=== PATIENT | female | born 1975 | race Caucasian/White ===

== ENCOUNTER 2017-05-31 18:00 | Inpatient (IN) | payer MEDICAID, OTHER ==
--- NOTE | 2017-05-31 18:47 | EDM.PDOC ---
ED HPI GENERAL MEDICAL PROBLEM - General Chief Complaint: Abdominal Pain Stated Complaint: SEVERE ABD PAIN Time Seen by Provider: 05/31/17 19:18 Source of Information: Reports: Patient, Old Records, RN Notes Reviewed History Limitations: Reports: No Limitations - History of Present Illness INITIAL COMMENTS - FREE TEXT/NARRATIVE: 42-year-old female presents emergency department day complaint of abdominal pain , she has a known history of gastric bypass approximates 5 years ago she states she's been doing fairly well for the last 4 years however the last 2-3 weeks she 's had increasing abdominal pain predominately in the epigastric region it progressively has gotten worse over the last 24 hours will get nauseated with the pain but is still passing gas no particular relationship to food she has had hysterectomy as well as cholecystectomy ABDOMINAL Pain Score (Numeric/FACES): 10 - Related Data Allergies Allergy/AdvReac Type Severity Reaction Status Date / Time Sulfa (Sulfonamide Allergy Intermediate Hives Verified 05/31/17 18:17 Antibiotics) Home Meds: Home Meds Ca Cmb No.1/Vit D3/B-6/FA/B12 [Vitamin D3 1,000 Unit] 1 each PO BID 01/05/13 [ History] Calcium Citrate 1 tab PO BID 01/05/13 [History] Iron,Carbonyl/Ascorbic Acid [Vitron-C Tablet] 125 mg PO DAILY 01/05/13 [History] Magnesium 400 mg PO TID 01/05/13 [History] Multivitamin [Multivitamins] 1 each PO BID 01/05/13 [History] Potassium Chloride [Klor-Con M20] 1 tab PO DAILY 01/05/13 [History] Vit B12/Fa/Pyridoxine HCl/AA15 [Glycotrol] 1,000 mcg SL BID 01/05/13 [History] Vitamin B Complex [B-100 Complex] 1 tab PO DAILY 06/27/15 [History] Melatonin 12 mg PO BEDTIME 06/28/15 [History] Amitriptyline [Elavil] 20 mg PO DAILY 05/31/17 [History] Gabapentin [Neurontin] 100 mg PO QID 05/31/17 [History] Zolpidem Tartrate [Ambien] 5 mg PO BEDTIME 05/31/17 [History] hydrOXYzine HCl [hydrOXYzine] 25 mg PO DAILY 05/31/17 [History] Past Medical History Gastrointestinal History: Reports: Bowel Obstruction, Cholelithiasis, Hiatal Hernia, Other (See Below) Other Gastrointestinal History: ulcer Genitourinary History: Reports: UTI, Recurrent [employer] History: Reports: 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 Uterine Bleeding, Endometriosis, Musculoskeletal History: Reports: None Psychiatric History: Reports: Depression Endocrine/Metabolic History: Reports: Hypothyroidism Hematologic History: Reports: B12 Deficiency - Infectious Disease History Infectious Disease History: Reports: Chicken Pox - Past Surgical History GI Surgical History: Reports: Bariatric Procedure, Cholecystectomy, Colon, Esophageal Dilatation, Elisha Fundoplication Female Surgical History: Reports: Section, D&C, Hysterectomy Endocrine Surgical History: Reports: None Social & Family History - Tobacco Use Smoking Status *Q: Never Smoker Second Hand Smoke Exposure: Yes - Alcohol Use Days Per Week of Alcohol Use: 1 Number of Drinks Per Day: 1 Total Drinks Per Week: 1 - Recreational Drug Use Recreational Drug Use: No ED ROS GENERAL - Review of Systems Review Of Systems: See Below Constitutional: Denies: Fever, Chills HEENT: Reports: No Symptoms Respiratory: Reports: No Symptoms Cardiovascular: Reports: No Symptoms GI/Abdominal: Reports: Abdominal Pain, Flatus, Nausea. Denies: Constipation, Diarrhea, Vomiting : Reports: No Symptoms Musculoskeletal: Reports: No Symptoms Skin: Reports: No Symptoms Neurological: Reports: No Symptoms ED EXAM, GI/ABD - Physical Exam Exam: See Below Text/Narrative:: General: Female, mild discomfort secondary to abdominal pain, alert and oriented x3 HEENT: head is atraumatic normocephalic, eyes pupils equal round reactive to light, sclera clear no conjunctivitis appreciated. Ears tympanic membranes clear and lopez landmarks and light reflex are present bilaterally canals are clear. Nose no septal deviation, nares are clear, no blood present. Mouth mucosa is moist and pink no erythema or exudate noted in soft palate, tongue is midline uvula is midline, dentition is intact. Neck: Supple no thyromegaly no tracheal deviation. Nodes: Cervical nodes subclavicular nodes nontender no palpable lymphadenopathy noted. Lungs: clear to auscultation bilaterally with symmetrical respirations, no adventitious noise appreciated. CV: Regular rate and rhythm S1 and S2 appreciated no murmurs rubs or gallops noted. Abdomen: Soft, tender epigastric region, no palpable masses or organomegaly appreciated, no distention mild guarding bowel sounds are present, . Neuro: Cranial nerves II through XII grossly intact Skin: Warm and dry, intact Course - Vital Signs Last Recorded V/S: Last Vital Signs Temp 98.1 F 05/31/17 18:16 Pulse 60 05/31/17 19:50 Resp 18 05/31/17 19:50 BP 125/79 05/31/17 19:50 Pulse Ox 100 05/31/17 19:50 - Orders/Labs/Meds Orders: Active Orders 24 hr Category Date Time Status Peripheral IV Care [RC] . DIRECTED Care 05/31/17 19:16 Active Abdomen Pelvis w Cont [CT] Urgent Exams 05/31/17 19:15 Ordered Iopamidol [Isovue-300 (61%)] Med 05/31/17 19:45 Active 100 ml IV . DIRECTED Sodium Chloride 0.9% [Normal Saline] 1,000 ml Med 05/31/17 19:15 Active IV ASDIRECTED Sodium Chloride 0.9% [Saline Flush] Med 05/31/17 19:15 Active 10 ml FLUSH ASDIRECTED PRN Peripheral IV Insertion Adult [OM.PC] Urgent Oth 05/31/17 19:15 Ordered Medication Orders Sodium Chloride (Normal Saline) 1,000 mls @ 500 mls/hr IV ASDIRECTED ETTA Last Admin: 05/31/17 20:18 Dose: 500 mls/hr Iopamidol (Isovue-300 (61%)) 100 ml IV . DIRECTED ETTA Last Admin: 05/31/17 20:11 Dose: 100 ml Sodium Chloride (Saline Flush) 10 ml FLUSH ASDIRECTED PRN PRN Reason: Keep Vein Open Last Admin: 05/31/17 20:12 Dose: 10 ml Admin: 05/31/17 19:49 Dose: 10 ml Admin: 05/31/17 19:46 Dose: 10 ml Admin: 05/31/17 19:33 Dose: 10 ml Labs: Laboratory Tests 05/31/17 05/31/17 05/31/17 Range/Units 19:15 19:33 19:33 WBC 7.2 (4.5-11.0) K/uL RBC 4.27 (3.30-5.50) M/uL Hgb 12.2 (12.0-15.0) g/dL Hct 37.7 (36.0-48.0) % MCV 88 (80-98) fL MCH 29 (27-31) pg MCHC 32 (32-36) % Plt Count 346 (150-400) K/uL Neut % (Auto) 49 (36-66) % Lymph % (Auto) 38 (24-44) % Bates % (Auto) 8 H (2-6) % Eos % (Auto) 5 H (2-4) % Baso % (Auto) 1 (0-1) % Sodium 139 L (140-148) mmol/L Potassium 3.6 (3.6-5.2) mmol/L Chloride 105 (100-108) mmol/L Carbon Dioxide 24 (21-32) mmol/L Anion Gap 13.6 (5.0-14.0) mmol/L BUN 10 (7-18) mg/dL Creatinine 0.9 (0.6-1.0) mg/dL Est Cr Clr Drug Dosing 75.45 mL/min Estimated GFR (MDRD) > 60 (>60) Glucose 90 (74-106) mg/dL Lactic Acid (0.4-2.0) mmol/L Calcium 8.3 L (8.5-10.1) mg/dL Total Bilirubin 0.4 (0.2-1.0) mg/dL AST 21 (15-37) U/L ALT 21 (12-78) U/L Alkaline Phosphatase 94 (46-116) U/L Total Protein 7.1 (6.4-8.2) g/dL Albumin 3.8 (3.4-5.0) g/dL Globulin 3.3 (2.3-3.5) g/dL Albumin/Globulin Ratio 1.2 (1.2-2.2) Lipase 104 (73-393) U/L Urine Color Yellow Urine Appearance Clear Urine pH 7.0 (4.5-8.0) Ur Specific [place] 1.005 L (1.008-1.030) Urine Protein Negative (NEGATIVE) mg/dL Urine Glucose (UA) Normal (NEGATIVE) mg/dL Urine Ketones Negative (NEGATIVE) mg/dL Urine Occult Blood Negative (NEGATIVE) Urine Nitrite Negative (NEGATIVE) Urine Bilirubin Negative (NEGATIVE) Urine Urobilinogen Normal (NORMAL) mg/dL Ur Leukocyte Esterase Negative (NEGATIVE) Urine RBC 0-5 (0-5) Urine WBC 0-5 (0-5) Ur Epithelial Cells Moderate Amorphous Sediment Few Urine Bacteria Few Urine Mucus Few 05/31/17 Range/Units 19:33 WBC (4.5-11.0) K/uL RBC (3.30-5.50) M/uL Hgb (12.0-15.0) g/dL Hct (36.0-48.0) % MCV (80-98) fL MCH (27-31) pg MCHC (32-36) % Plt Count (150-400) K/uL Neut % (Auto) (36-66) % Lymph % (Auto) (24-44) % Bates % (Auto) (2-6) % Eos % (Auto) (2-4) % Baso % (Auto) (0-1) % Sodium (140-148) mmol/L Potassium (3.6-5.2) mmol/L Chloride (100-108) mmol/L Carbon Dioxide (21-32) mmol/L Anion Gap (5.0-14.0) mmol/L BUN (7-18) mg/dL Creatinine (0.6-1.0) mg/dL Est Cr Clr Drug Dosing mL/min Estimated GFR (MDRD) (>60) Glucose (74-106) mg/dL Lactic Acid 1.0 (0.4-2.0) mmol/L Calcium (8.5-10.1) mg/dL Total Bilirubin (0.2-1.0) mg/dL AST (15-37) U/L ALT (12-78) U/L Alkaline Phosphatase (46-116) U/L Total Protein (6.4-8.2) g/dL Albumin (3.4-5.0) g/dL Globulin (2.3-3.5) g/dL Albumin/Globulin Ratio (1.2-2.2) Lipase (73-393) U/L Urine Color Urine Appearance Urine pH (4.5-8.0) Ur Specific [place] (1.008-1.030) Urine Protein (NEGATIVE) mg/dL Urine Glucose (UA) (NEGATIVE) mg/dL Urine Ketones (NEGATIVE) mg/dL Urine Occult Blood (NEGATIVE) Urine Nitrite (NEGATIVE) Urine Bilirubin (NEGATIVE) Urine Urobilinogen (NORMAL) mg/dL Ur Leukocyte Esterase (NEGATIVE) Urine RBC (0-5) Urine WBC (0-5) Ur Epithelial Cells Amorphous Sediment Urine Bacteria Urine Mucus Meds: Medications Generic Name Dose Route Start Last Admin Trade Name Freq PRN Reason Stop Dose Admin Sodium Chloride 1,000 mls @ 500 mls/hr 05/31/17 19:15 05/31/17 20:18 Normal Saline IV 500 mls/hr ASDIRECTED ETTA Administration Iopamidol 100 ml 05/31/17 19:45 05/31/17 20:11 Isovue-300 (61%) IV 100 ml . DIRECTED ETTA Administration Sodium Chloride 10 ml 05/31/17 19:15 05/31/17 20:12 Saline Flush FLUSH 10 ml ASDIRECTED PRN Administration Keep Vein Open Discontinued Medications Generic Name Dose Route Start Last Admin Trade Name Freq PRN Reason Stop Dose Admin Fentanyl 50 mcg 05/31/17 19:17 05/31/17 19:47 Sublimaze IVPUSH 05/31/17 19:18 50 mcg ONETIME ONE Administration Fentanyl 100 mcg 05/31/17 20:55 05/31/17 20:59 Sublimaze IVPUSH 05/31/17 20:56 100 mcg ONETIME ONE Administration Sodium Chloride 75 mls @ 3.5 mls/sec 05/31/17 19:33 05/31/17 20:11 Normal Saline IV 05/31/17 19:34 3.5 mls/sec ONETIME ONE Administration Ondansetron HCl 4 mg 05/31/17 19:17 05/31/17 19:45 Zofran IVPUSH 05/31/17 19:18 4 mg ONETIME ONE Administration Sodium Chloride 10 ml 05/31/17 19:33 Saline Flush FLUSH 05/31/17 19:34 ONETIME ONE Departure - Departure Time of Disposition: 21:01 Disposition: Admitted As Inpatient 65 Condition: Good Clinical Impression: Gastric bypass status for obesity Abdominal pain Qualifiers: Abdominal location: epigastric Qualified Code(s): R10.13 - Epigastric pain - Discharge Information Referrals: Phong Parr MD [Primary Care Provider] - Forms: ED Department Discharge - My Orders Last 24 Hours: My Active Orders 05/31/17 19:15 Abdomen Pelvis w Cont [CT] Urgent Sodium Chloride 0.9% [Normal Saline] 1,000 ml IV ASDIRECTED Sodium Chloride 0.9% [Saline Flush] 10 ml FLUSH ASDIRECTED PRN Peripheral IV Insertion Adult [OM.PC] Urgent 05/31/17 19:16 Peripheral IV Care [RC] . DIRECTED 05/31/17 19:45 Iopamidol [Isovue-300 (61%)] 100 ml IV . DIRECTED - Assessment/Plan Last 24 Hours: My Active Orders 05/31/17 19:15 Abdomen Pelvis w Cont [CT] Urgent Sodium Chloride 0.9% [Normal Saline] 1,000 ml IV ASDIRECTED Sodium Chloride 0.9% [Saline Flush] 10 ml FLUSH ASDIRECTED PRN Peripheral IV Insertion Adult [OM.PC] Urgent 05/31/17 19:16 Peripheral IV Care [RC] . DIRECTED 05/31/17 19:45 Iopamidol [Isovue-300 (61%)] 100 ml IV . DIRECTED Plan: Assessment Acuity = acute Site and laterality = epigastric abdominal pain complicated patient with known history of gastric bypass 5 years ago Etiology = unclear etiology Manifestations = none Location of injury = Home Lab values = CBC, CMP, urinalysis unremarkable CT scan shows no acute process Plan Called discussed the case with Dr. Parr general surgery he agreed to admit the patient he will evaluate the patient in the hospital This note was dictated using [employer] voice recognition software please call with any questions on syntax or karine.
[2017-05-31] MEDS ORDERED: Sodium Chloride 0.9% 1,000 ML IV SCH (19:15)
[2017-05-31] MEDS ORDERED: fentaNYL 100 MCG/2 ML SDV IVPUSH ONE ×2 (19:17→20:55)
[2017-05-31] MEDS ORDERED: Ondansetron 4 MG/2 ML SDV IVPUSH ONE (19:17)
[2017-05-31] MEDS ORDERED: Sodium Chloride 0.9% 75 ML IV ONE (19:33)
[2017-05-31] MEDS: Sodium Chloride 0.9% 10 ML Syringe FLUSH PRN ×4 (19:33→20:12)
[2017-05-31] MEDS ORDERED: Sodium Chloride 0.9% 10 ML Syringe FLUSH ONE (19:33)
[2017-05-31] MEDS ORDERED: Iopamidol 612 MG/ML 100 ML Bottle IV SCH (19:45)
[2017-05-31] MEDS ORDERED: fentaNYL/Normal Saline 600 MCG/30 ML PCA Vial IV SCH (21:15)
[2017-05-31] MEDS ORDERED: fentaNYL/Normal Saline 600 MCG/30 ML PCA Vial ONE (21:41)
[2017-05-31] MEDS: Gabapentin 100 MG Cap PO SCH (22:12)
[2017-05-31] MEDS ORDERED: hydrOXYzine HCl 100 MG/2 ML SDV IM ONE (22:31)
[2017-05-31] MEDS ORDERED: Meperidine PF 75 MG/ML Syringe IM ONE (22:31)
[2017-05-31] MEDS ORDERED: Ondansetron 4 MG/2 ML SDV IVPUSH PRN (23:24)
[2017-06-01] MEDS ORDERED: Meperidine PF 75 MG/ML Syringe IM PRN (03:40)
[2017-06-01] MEDS ORDERED: hydrOXYzine HCl 100 MG/2 ML SDV IM ONE (03:41)
[2017-06-01] MEDS ORDERED: fentaNYL/Normal Saline 600 MCG/30 ML PCA Vial IV PRN (04:11)
[2017-06-01] MEDS ORDERED: Naloxone 0.4 MG/ML SDV IV PRN (04:11)
[2017-06-01] MEDS: Lactated Ringers 1,000 ML IV SCH ×3 (05:11→19:23)
[2017-06-01] MEDS: Gabapentin 100 MG Cap PO SCH ×4 (05:11→21:06)
[2017-06-01] MEDS ORDERED: diphenhydrAMINE 50 MG/ML SDV IVPUSH PRN (07:19)
[2017-06-01] MEDS ORDERED: Propofol 200 MG/20 ML SDV ONE (07:22)
[2017-06-01] MEDS ORDERED: fentaNYL 100 MCG/2 ML SDV ONE (07:23)
[2017-06-01] MEDS ORDERED: Midazolam 1 MG/ML 2 ML SDV ONE (07:23)
[2017-06-01] MEDS ORDERED: Glycopyrrolate 0.2 MG/ML 2 ML SYRINGE IVPUSH ONE (08:00)
[2017-06-01] MEDS ORDERED: Pantoprazole 40 MG Vial IVPUSH ONE (08:40)
[2017-06-01] MEDS ORDERED: hydrOXYzine HCl 25 MG Tab PO SCH (09:00)
[2017-06-01] MEDS ORDERED: Amitriptyline 10 MG Tab PO SCH (09:00)
[2017-06-01] MEDS ORDERED: hydrOXYzine HCl 25 MG Tab PO PRN (09:18)
[2017-06-01] MEDS: Cyanocobalamin (Vitamin B12) 1,000 MCG Tab PO SCH ×2 (10:21→21:13)
[2017-06-01] MEDS: Sucralfate Suspension 1 GM/10 ML Cup PO SCH ×3 (10:22→21:06)
[2017-06-01] MEDS: Potassium Chloride 20 MEQ Tab.ER PO SCH (10:23)
[2017-06-01] MEDS: Calcium Carbonate/Vitamin D3 1500 MG-400 Units Tab PO SCH ×2 (10:23→21:04)
[2017-06-01] MEDS: Ferrous Fumarate/Vitamin C 200-125 MG Tab PO SCH (10:24)
[2017-06-01] MEDS: Vitamin B Complex Tab PO SCH (10:24)
[2017-06-01] MEDS: Cholecalciferol (Vitamin D3) 1,000 Unit Tab PO SCH ×2 (10:24→21:13)
[2017-06-01] MEDS: Magnesium Oxide 400 MG Tab PO SCH ×3 (10:24→21:04)
[2017-06-01] MEDS: Multivitamins with Iron/Calcium/Folic Acid/Minerals Tab PO SCH ×2 (10:24→21:13)
[2017-06-01] MEDS ORDERED: Zolpidem 5 MG Tab PO SCH (21:00)
[2017-06-01] MEDS ORDERED: Melatonin 3 MG Tab PO SCH (21:00)
[2017-06-01] MEDS ORDERED: Amitriptyline 25 MG Tab PO SCH (21:00)
[2017-06-01] MEDS: Pantoprazole 40 MG Vial IV SCH (21:06)
[2017-06-02] MEDS: Lactated Ringers 1,000 ML IV SCH (03:05)
[2017-06-02] MEDS: Sucralfate Suspension 1 GM/10 ML Cup PO SCH ×2 (03:07→10:56)
[2017-06-02] MEDS: Potassium Chloride 20 MEQ Tab.ER PO SCH (08:10)
[2017-06-02] MEDS: Multivitamins with Iron/Calcium/Folic Acid/Minerals Tab PO SCH (08:10)
[2017-06-02] MEDS: Cholecalciferol (Vitamin D3) 1,000 Unit Tab PO SCH (08:10)
[2017-06-02] MEDS: Calcium Carbonate/Vitamin D3 1500 MG-400 Units Tab PO SCH (08:10)
[2017-06-02] MEDS: Magnesium Oxide 400 MG Tab PO SCH (08:10)
[2017-06-02] MEDS: Ferrous Fumarate/Vitamin C 200-125 MG Tab PO SCH (08:10)
[2017-06-02] MEDS: Vitamin B Complex Tab PO SCH (08:10)
[2017-06-02] MEDS: Pantoprazole 40 MG Vial IV SCH (08:11)
[2017-06-02] MEDS: Gabapentin 100 MG Cap PO SCH (08:11)
[2017-06-02] MEDS: Cyanocobalamin (Vitamin B12) 1,000 MCG Tab PO SCH (08:11)
[2017-06-02] MEDS: Iron Sucrose Complex 500 MG in Sodium Chloride 0.9% 250 ML IV ONE ×2 (08:15→08:51)
--- NOTE | 2017-06-02 09:00 | DISCH ---
ADMISSION DIAGNOSES: Midepigastric abdominal pain, status post Nalini-en-Y gastric bypass surgery, unspecified surgical malabsorption, B12 deficiency, hypothyroidism, and depression. DISCHARGE DIAGNOSES: 1. Status post EGD showing mild esophagitis. 2. Iron deficiency anemia, low ferritin of 9. HISTORY: Saima Belle was admitted from the emergency room with abdominal pain for 2 to 3 weeks, in the midepigastric area. She was evaluated in the emergency room and was admitted to the hospital under Phong Parr MD, surgical team. Date of admission was . On 06/01/2017, she had an EGD and was started on Carafate, which she states did resolve her symptoms. Lab works were obtained. Hemoglobin was 9.9. Magnesium was 1.5. Albumin 2.7. B12 was 306. Ferritin was 9. On date of discharge, 06/02/2017, she was given Venofer 500 mg IV with instructions to be scheduled in followup for the second dose of Venofer 500 in one week. REVIEW OF SYSTEMS: GENERAL: Denies any fever, chills, night sweats, or fatigue. HEENT: Negative. NECK: Negative. CHEST: Negative for any fast irregular heartbeat. LUNGS: No shortness of breath or cough. ABDOMEN: Mid-epigastric abdominal pain resolved with Carafate liquid. No nausea, vomiting, diarrhea, or constipation. : Negative for UTI signs and symptoms. EXTREMITIES: Negative for joint pain or swelling. SKIN: Negative for rash or changes in moles. PSYCHIATRIC: Depression controlled. No insomnia. NEUROLOGIC: No headaches, dizziness, or loss of coordination. Remainder of review of systems negative for any pertinent positives and negatives. PHYSICAL EXAMINATION: GENERAL: Saima Belle is a 42-year-old female. VITAL SIGNS: Height is 5 feet 6 inches. Weight is 158 pounds. TPR is 98.9, 56, 16, and blood pressure 102/60. HEENT: Negative. NECK: Supple. HEART: Regular rate and rhythm. LUNGS: Clear. ABDOMEN: Soft and nontender. EXTREMITIES: Without peripheral edema. NEURO: Intact. PSYCHIATRIC: Mood and affect appropriate. DISPOSITION: Discharge to home. CONDITION: Stable and improving. FOLLOWUP APPOINTMENT: On 06/09/2017 at 11 a.m. with Domonique Wray PA-C, at [facility]. DISCHARGE MEDICATIONS: 1. New prescriptions, Carafate 0.5 grams oral q.6 hours for 30 days and one refill, 600 mL were given. 2. She is to resume her home medications of;. a. Elavil 25 mg at bedtime. b. Vitamin D3 1000 international units oral twice daily. c. Calcium citrate 1 tablet oral twice daily. d. Neurontin 100 mg oral 3 times a day. e. Vitron-C 125 mg oral daily. f. Magnesium 400 mg 3 times a day. g. Melatonin 12 mg at bedtime. h. Multivitamin one chewable twice daily. i. Klor-Con 1 tablet daily. j. Vitamin B12 1000 mcg sublingual twice a day. k. Vitamin B complex 1 tablet daily. l. Ambien 5 mg oral at bedtime. m. Hydroxyzine 25 mg oral 4 times a day p.r.n. anxiety. DIET: Usual diet as tolerated. Drink 8 to 10 glasses of water a day. ACTIVITY: As tolerated. May shower. DISCHARGE INSTRUCTIONS: Notify provider if any nausea or vomiting. Special instruction, appointment in one week at [facility] for second Venofer injection.
[2017-06-02 11:14] VITALS: BP 99/56
--- NOTE | 2017-06-02 16:43 | PN ---
DATE OF SERVICE: 06/01/2017 The patient was admitted overnight with epigastric pain, status post previous gastric bypass and a previous bowel obstruction. She states that this pain feels different. She has not been on any H2 blockers or proton pump inhibitors and examination shows some tenderness in the epigastrium. Plan will be to proceed with the upper GI endoscopy with biopsies as indicated today. I suspect we are most likely dealing with marginal ulcer. CT scan was otherwise unremarkable. She will undergo an upper endoscopy fairly soon this morning. Phong Parr MD /[id number]
--- NOTE | 2017-06-09 17:30 | OR ---
DATE OF PROCEDURE: 06/01/2017 PREOPERATIVE DIAGNOSIS: Upper abdominal pain. POSTOPERATIVE DIAGNOSES: Upper abdominal pain associated with mild esophagitis. OPERATIVE PROCEDURE: Upper GI endoscopy with biopsies of gastric pouch for CLOtest. ANESTHESIA: IV sedation. INDICATION FOR PROCEDURE: This is a 42-year-old status post Nalini-en-Y gastric bypass roughly 5 years ago, presenting with some epigastric pain. She is admitted overnight. She has not been on any H2 blockers or proton pump inhibitors. Plan is to proceed with an upper GI endoscopy with biopsies and/or dilation as indicated. Potential risks including bleeding and perforation were discussed, and the patient wishes to proceed. DETAILS OF PROCEDURE: The patient was taken to the operating room and placed in a left lateral decubitus position. IV sedation was administered, after which the upper GI endoscope was passed orally through the length of the esophagus, into the gastric pouch, from there through the gastrojejunostomy roughly 20 cm into the Nalini limb. Findings included normal hypopharynx, larynx, upper esophageal sphincter, and esophageal body. At the EG junction, there was some mild distal most esophagitis, with some friability and edema but no erosions or ulcers. There is no stricturing at that level. The gastric pouch had some perhaps mild redness within it, but otherwise was unremarkable. Gastrojejunostomy was nonstenotic and did not have any associated inflammation or associated marginal ulcer. The remaining portion of the visualized Nalini limb was likewise unremarkable. At this point, biopsies were obtained from the gastric pouch, sent for CLOtest for H. pylori. Minimal bleeding from the biopsy sites was seen and the procedure concluded. The patient was taken to the recovery room in satisfactory condition. Phong Parr MD /[id number]
== END 2017-06-02 13:10 | disposition home or self-care (01) | DRG 392 ==
LOC: JP.ED 18:00 → JP.2SS 21:11 → OBSVTOIN 06-01 08:20
PROVIDERS: ADMIT Surgery; ATTEND Surgery
PROC: 0DB68ZX Excision of Stomach, Via Natural or Artificial Opening Endoscopic, Diagnostic (ICD-10-PCS; principal; 2017-06-01)
DX: K20.8 Other esophagitis (principal); K91.2 Postsurgical malabsorption, not elsewhere classified; D50.9 Iron deficiency anemia, unspecified; E53.8 Deficiency of other specified B group vitamins; E03.9 Hypothyroidism, unspecified; Z87.440 Personal history of urinary (tract) infections; Z88.2 Allergy status to sulfonamides; Z98.84 Bariatric surgery status; Z98.0 Intestinal bypass and anastomosis status
CPT/HCPCS: 36415; 74177; 80053; 81001; 82150; 82607; 82728; 83605; 83690; 83735; 84100; 85025; 85027; 87081; 94762; 96361; 96372; 96374; 96375; 96376; 99284; 99285-25; A9270-GY; C9113; G0378; J1756; J2175; J2250; J2405; J2704; J3010; J3410; J7030; J7040; J7050; J7120; Q9967

== ENCOUNTER 2017-09-25 12:59 | Emergency (ER) | payer MEDICAID ==
[2017-09-25 14:18] VITALS: BP 89/52
--- NOTE | 2017-09-25 16:08 | EDM.PDOC ---
ED HPI GENERAL MEDICAL PROBLEM - General Chief Complaint: Gastrointestinal Problem Stated Complaint: WEAK,HEADACHE,DIARRHEA Time Seen by Provider: 09/25/17 15:00 Source of Information: Reports: Patient History Limitations: Reports: No Limitations - History of Present Illness INITIAL COMMENTS - FREE TEXT/NARRATIVE: Pt arrived with a history of a few days of diarrhea. She had about 10 to 15 stools last nite and today feels very shakey. Onset: Gradual, Other ( last 2-3 days. ) Duration: Hour(s): Location: Reports: Abdomen Associated Symptoms: Reports: Other ( diarrhea) - Related Data Allergies Allergy/AdvReac Type Severity Reaction Status Date / Time Sulfa (Sulfonamide Allergy Intermediate Hives Verified 09/25/17 14:22 Antibiotics) Home Meds: Home Meds Ca Cmb No.1/Vit D3/B-6/FA/B12 [Vitamin D3 1,000 Unit] 1 each PO BID 01/05/13 [ History] Calcium Citrate 1 tab PO BID 01/05/13 [History] Iron,Carbonyl/Ascorbic Acid [Vitron-C Tablet] 125 mg PO DAILY 01/05/13 [History] Magnesium 400 mg PO TID 01/05/13 [History] Multivitamin [Multivitamins] 1 each PO BID 01/05/13 [History] Potassium Chloride [Klor-Con M20] 1 tab PO DAILY 01/05/13 [History] Vit B12/Fa/Pyridoxine HCl/AA15 [Glycotrol] 1,000 mcg SL BID 01/05/13 [History] Vitamin B Complex [B-100 Complex] 1 tab PO DAILY 06/27/15 [History] Melatonin 12 mg PO BEDTIME 06/28/15 [History] Zolpidem Tartrate [Ambien] 5 mg PO BEDTIME 05/31/17 [History] Sucralfate [Carafate] 0.5 gm PO Q6H #600 ml 06/02/17 [Rx] Past Medical History HEENT History: Reports: Impaired Vision Gastrointestinal History: Reports: Bowel Obstruction, Cholelithiasis, Hiatal Hernia, Other (See Below) Other Gastrointestinal History: ulcer Genitourinary History: Reports: UTI, Recurrent 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: 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 Bleeding, Endometriosis, Musculoskeletal History: Reports: None Psychiatric History: Reports: Depression Endocrine/Metabolic History: Reports: Hypothyroidism Hematologic History: Reports: B12 Deficiency - Infectious Disease History Infectious Disease History: Reports: Chicken Pox - Past Surgical History HEENT Surgical History: Reports: None GI Surgical History: Reports: Bariatric Procedure, Cholecystectomy, Colon, Esophageal Dilatation, Elisha Fundoplication Female Surgical History: Reports: Section, D&C, Hysterectomy Endocrine Surgical History: Reports: None Social & Family History - Tobacco Use Smoking Status *Q: Never Smoker - Caffeine Use Caffeine Use: Reports: Coffee, Soda, Tea ED ROS GENERAL - Review of Systems Review Of Systems: See Below Constitutional: Reports: Weakness HEENT: Reports: No Symptoms Respiratory: Reports: No Symptoms Cardiovascular: Reports: No Symptoms Endocrine: Reports: No Symptoms GI/Abdominal: Reports: Diarrhea : Reports: No Symptoms Musculoskeletal: Reports: No Symptoms Skin: Reports: No Symptoms ED EXAM, GI/ABD - Physical Exam Exam: See Below Text/Narrative:: Pt arrived with out a fever. She is having diarrhea. Her sister had clost diff last week and she is concerned that she could have it. Exam Limited By: No Limitations General Appearance: Alert, Mild Distress Ears: Normal TMs Nose: Normal Inspection Throat/Mouth: Normal Inspection Head: Atraumatic Neck: Normal Inspection Respiratory/Chest: No Respiratory Distress Cardiovascular: Regular Rate, Rhythm GI/Abdominal Exam: Tender, Other ( no guarding) (Female) Exam: Deferred Back Exam: Normal Inspection Extremities: Normal Inspection Course - Vital Signs Last Recorded V/S: Last Vital Signs Temp 36.7 C 09/25/17 14:35 Pulse 63 09/25/17 14:35 Resp 12 09/25/17 14:35 BP 89/52 L 09/25/17 14:35 Pulse Ox 100 09/25/17 14:35 - Orders/Labs/Meds Orders: Active Orders 24 hr Category Date Time Status CLOSTRIDIUM DIFFICILE BY PCR [RM] Stat Lab 09/25/17 16:25 Ordered CULTURE STOOL + SHIGATOX [RM] Stat Lab 09/25/17 17:11 Ordered OVA + PARASITE EXAM Stat Lab 09/25/17 17:11 Received UA W/MICROSCOPIC [URIN] Urgent Lab 09/25/17 15:09 Ordered Sodium Chloride 0.9% [Normal Saline] 1,000 ml Med 09/25/17 16:15 Active IV ASDIRECTED Sodium Chloride 0.9% [Normal Saline] 1,000 ml Med 09/25/17 16:45 Active IV ASDIRECTED Medication Orders Sodium Chloride (Normal Saline) 1,000 mls @ 999 mls/hr IV ASDIRECTED ETTA Last Admin: 09/25/17 16:32 Dose: 999 mls/hr Sodium Chloride (Normal Saline) 1,000 mls @ 999 mls/hr IV ASDIRECTED ETTA Last Admin: 09/25/17 17:35 Dose: 999 mls/hr Labs: Laboratory Tests 09/25/17 09/25/17 09/25/17 Range/Units 14:35 14:35 15:09 WBC 6.6 (4.5-11.0) K/uL RBC 4.53 (3.30-5.50) M/uL Hgb 13.7 D (12.0-15.0) g/dL Hct 40.7 (36.0-48.0) % MCV 90 (80-98) fL MCH 30 (27-31) pg MCHC 34 (32-36) % Plt Count 260 (150-400) K/uL Neut % (Auto) 66 (36-66) % Lymph % (Auto) 23 L (24-44) % [place] % (Auto) 9 H (2-6) % Eos % (Auto) 3 (2-4) % Baso % (Auto) 0 (0-1) % Sodium 143 (140-148) mmol/L Potassium 4.1 (3.6-5.2) mmol/L Chloride 107 (100-108) mmol/L Carbon Dioxide 26 (21-32) mmol/L Anion Gap 10.0 (5.0-14.0) mmol/L BUN 5 L (7-18) mg/dL Creatinine 0.8 (0.6-1.0) mg/dL Est Cr Clr Drug Dosing 84.88 mL/min Estimated GFR (MDRD) > 60 (>60) Glucose 94 (74-106) mg/dL Calcium 8.4 L (8.5-10.1) mg/dL Total Bilirubin 0.6 D (0.2-1.0) mg/dL AST 18 (15-37) U/L ALT 23 (12-78) U/L Alkaline Phosphatase 75 (46-116) U/L Total Protein 7.4 (6.4-8.2) g/dL Albumin 3.7 (3.4-5.0) g/dL Globulin 3.7 H (2.3-3.5) g/dL Albumin/Globulin Ratio 1.0 L (1.2-2.2) Urine Color Yellow Urine Appearance Slightly cloudy Urine pH 5.0 (4.5-8.0) Ur Specific [place] 1.010 (1.008-1.030) Urine Protein Negative (NEGATIVE) mg/dL Urine Glucose (UA) Normal (NEGATIVE) mg/dL Urine Ketones Negative (NEGATIVE) mg/dL Urine Occult Blood Negative (NEGATIVE) Urine Nitrite Negative (NEGATIVE) Urine Bilirubin Negative (NEGATIVE) Urine Urobilinogen Normal (NORMAL) mg/dL Ur Leukocyte Esterase Negative (NEGATIVE) Urine RBC 0-5 (0-5) Urine WBC 0-5 (0-5) Ur Epithelial Cells Few Amorphous Sediment Not seen Urine Bacteria Rare Urine Mucus Not seen Meds: Medications Generic Name Dose Route Start Last Admin Trade Name Freq PRN Reason Stop Dose Admin Sodium Chloride 1,000 mls @ 999 mls/hr 09/25/17 16:15 09/25/17 16:32 Normal Saline IV 999 mls/hr ASDIRECTED ETTA Administration Sodium Chloride 1,000 mls @ 999 mls/hr 09/25/17 16:45 09/25/17 17:35 Normal Saline IV 999 mls/hr ASDIRECTED ETTA Administration Discontinued Medications Generic Name Dose Route Start Last Admin Trade Name Freq PRN Reason Stop Dose Admin Al Hydroxide/Mg Hydroxide 15 0 ml 09/25/17 17:09 09/25/17 17:16 ml/ Lidocaine HCl 15 ml PO 09/25/17 17:10 30 ml ONETIME ONE Administration Loperamide HCl 4 mg 09/25/17 17:10 09/25/17 17:14 Imodium PO 09/25/17 17:11 4 mg ONETIME ONE Administration - Re-Assessments/Exams Free Text/Narrative Re-Assessment/Exam: 09/25/17 17:14 clost was neg, a stool culture and oand p was set up. She will be hydrated with 2 liters of fluid. She was given a gi cocktail for heartburn, She was given imodium Departure - Departure Time of Disposition: 18:06 Disposition: Home, Self-Care 01 Clinical Impression: Dehydration, Diarrhea - Discharge Information Referrals: PCP,None [Primary Care Provider] - Forms: ED Department Discharge Care Plan Goals: clear liquid diet, imodium 2 tabs after each loose stool up to 5 does daily. rtc if not improving, will notify of stool culture and o and p - My Orders Last 24 Hours: My Active Orders 09/25/17 15:09 UA W/MICROSCOPIC [URIN] Urgent 09/25/17 16:15 Sodium Chloride 0.9% [Normal Saline] 1,000 ml IV ASDIRECTED 09/25/17 16:25 CLOSTRIDIUM DIFFICILE BY PCR [RM] Stat 09/25/17 16:45 Sodium Chloride 0.9% [Normal Saline] 1,000 ml IV ASDIRECTED 09/25/17 17:11 CULTURE STOOL + SHIGATOX [RM] Stat OVA + PARASITE EXAM Stat - Assessment/Plan Last 24 Hours: My Active Orders 09/25/17 15:09 UA W/MICROSCOPIC [URIN] Urgent 09/25/17 16:15 Sodium Chloride 0.9% [Normal Saline] 1,000 ml IV ASDIRECTED 09/25/17 16:25 CLOSTRIDIUM DIFFICILE BY PCR [RM] Stat 09/25/17 16:45 Sodium Chloride 0.9% [Normal Saline] 1,000 ml IV ASDIRECTED 09/25/17 17:11 CULTURE STOOL + SHIGATOX [RM] Stat OVA + PARASITE EXAM Stat
[2017-09-25] MEDS ORDERED: Sodium Chloride 0.9% 1,000 ML IV SCH ×2 (16:15→16:45)
[2017-09-25] MEDS ORDERED: Alum Hydrox/Mag Hydrox/Simeth 15 ML, Lidocaine 2% 15 ML PO ONE ×2 (17:09)
[2017-09-25] MEDS ORDERED: Loperamide 2 MG Cap PO ONE (17:10)
== END 2017-09-25 18:26 | disposition home or self-care (01) ==
LOC: JP.ED 12:59
DX: E86.0 Dehydration (principal); R19.7 Diarrhea, unspecified; E03.9 Hypothyroidism, unspecified; F32.9 Major depressive disorder, single episode, unspecified; Z79.899 Other long term (current) drug therapy; Z88.2 Allergy status to sulfonamides
CPT/HCPCS: 36415; 80053; 81001; 85025; 87046; 87177; 87209; 87493; 87899; 96360; 96361; 99285; A9270; J7030

== ENCOUNTER 2017-10-04 00:35 | Emergency (ER) | payer MEDICAID ==
[2017-10-04 00:44] VITALS: BP 130/79
--- NOTE | 2017-10-04 01:22 | EDM.PDOC ---
ED HPI GENERAL MEDICAL PROBLEM - General Chief Complaint: General Stated Complaint: RAISING HEART Time Seen by Provider: 10/04/17 00:40 Source of Information: Reports: Patient History Limitations: Reports: No Limitations - History of Present Illness INITIAL COMMENTS - FREE TEXT/NARRATIVE: 42-year-old female who is been feeling poorly for the last several weeks with diarrhea, generalized malaise and weakness woke up this morning with palpitations and developed acute anxiety. She came in to the hospital and was so anxious she was mixing up the gas and brake pedal in the car, getting numb extremities and arrived extremely anxious. She has no chest pain or significant shortness of breath. She is just sick and tired of feeling sick. She was in the emergency room 8 days ago and had a very thorough workup, blood work and electrolytes were excellent. She received some fluid. She had her thyroid checked in the clinic 2 weeks ago. One of the main reason she became so scared was because she is "alone". Onset: Unknown/Unsure Severity: Moderate Associated Symptoms: Reports: Loss of Appetite, Malaise, Weakness. Denies: Confusion, Chest Pain Chest Pain Score (Numeric/FACES): 4 - Related Data Allergies Allergy/AdvReac Type Severity Reaction Status Date / Time Sulfa (Sulfonamide Allergy Intermediate Hives Verified 10/04/17 00:41 Antibiotics) Home Meds: Home Meds Ca Cmb No.1/Vit D3/B-6/FA/B12 [Vitamin D3 1,000 Unit] 1 each PO BID 01/05/13 [ History] Calcium Citrate 1 tab PO BID 01/05/13 [History] Iron,Carbonyl/Ascorbic Acid [Vitron-C Tablet] 125 mg PO DAILY 01/05/13 [History] Multivitamin [Multivitamins] 1 each PO BID 01/05/13 [History] Vit B12/Fa/Pyridoxine HCl/AA15 [Glycotrol] 1,000 mcg SL BID 01/05/13 [History] Vitamin B Complex [B-100 Complex] 1 tab PO DAILY 06/27/15 [History] Melatonin 12 mg PO BEDTIME 06/28/15 [History] Zolpidem Tartrate [Ambien] 5 mg PO BEDTIME 05/31/17 [History] Sucralfate [Carafate] 0.5 gm PO Q6H #600 ml 06/02/17 [Rx] Past Medical History HEENT History: Reports: Impaired Vision Gastrointestinal History: Reports: Bowel Obstruction, Cholelithiasis, Hiatal Hernia, Other (See Below) Other Gastrointestinal History: ulcer Genitourinary History: Reports: UTI, Recurrent 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: 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 Uterine Bleeding, Endometriosis, Musculoskeletal History: Reports: None Psychiatric History: Reports: Depression Endocrine/Metabolic History: Reports: Hypothyroidism Hematologic History: Reports: B12 Deficiency - Infectious Disease History Infectious Disease History: Reports: Chicken Pox - Past Surgical History HEENT Surgical History: Reports: None GI Surgical History: Reports: Bariatric Procedure, Cholecystectomy, Colon, Esophageal Dilatation, Elisha Fundoplication Female Surgical History: Reports: Section, D&C, Hysterectomy Endocrine Surgical History: Reports: None Social & Family History - Family History Family Medical History: Noncontributory - Tobacco Use Smoking Status *Q: Never Smoker - Caffeine Use Caffeine Use: Reports: None - Recreational Drug Use Recreational Drug Use: No ED ROS GENERAL - Review of Systems Review Of Systems: See Below Constitutional: Reports: Malaise, Weakness, Decreased Appetite. Denies: Fever, Chills HEENT: Reports: No Symptoms Respiratory: Denies: Shortness of Breath Cardiovascular: Reports: Palpitations. Denies: Chest Pain GI/Abdominal: Reports: Diarrhea, Nausea. Denies: Vomiting : Reports: No Symptoms Skin: Reports: No Symptoms Neurological: Reports: Paresthesia ED EXAM, GENERAL - Physical Exam Exam: See Below Exam Limited By: No Limitations General Appearance: Alert, Anxious Eye Exam: Bilateral Eye: Normal Inspection Head: Atraumatic Respiratory/Chest: No Respiratory Distress, Lungs Clear Cardiovascular: Regular Rate, Rhythm, Bradycardia. No: Extra Beats Extremities: Normal Inspection. No: Pedal Edema Neurological: Alert, Oriented, No Motor/Sensory Deficits Psychiatric: Anxious Skin Exam: Warm, Dry Course - Vital Signs Last Recorded V/S: Last Vital Signs Temp 98.1 F 10/04/17 00:44 Pulse 54 L 10/04/17 00:44 Resp 18 10/04/17 00:44 BP 130/79 10/04/17 00:44 Pulse Ox 99 10/04/17 00:44 - Re-Assessments/Exams Free Text/Narrative Re-Assessment/Exam: 10/04/17 01:18 Patient was kept on a slide forming machine tender and vitals were monitored for the next 40 minutes and were stable. She had a persistent bradycardia but no arrhythmia. I had a fairly long talk with the patient regarding anxiety, expectations, and treatments. No further workup is needed tonight and she is comfortable with that because she is feeling better. I recommended probiotics and following up with the surgical department to discuss vitamin levels and possibly starting on maintenance Paxil which works very well for her sister. She can always return if worsening. Departure - Departure Time of Disposition: 01:31 Disposition: Home, Self-Care 01 Condition: Good Clinical Impression: Palpitations, Anxiety about health - Discharge Information Instructions: Panic Attack, [id number] Referrals: PCP,None [Primary Care Provider] - Forms: ED Department Discharge Care Plan Goals: Consider probiotics for the next several days and recheck with Dr. Parr or Domonique Wray when able. Consider discussing a Holter monitor if you continue to have palpitations. Also consider starting Paxil when you recheck at the clinic. Return to the emergency room at any time if you feel you need further evaluation or develop other concerns.
== END 2017-10-04 01:31 | disposition home or self-care (01) ==
LOC: JP.ED 00:35
DX: F41.9 Anxiety disorder, unspecified (principal); E03.9 Hypothyroidism, unspecified; Z79.899 Other long term (current) drug therapy; Z88.2 Allergy status to sulfonamides
CPT/HCPCS: 99284

== ENCOUNTER 2017-12-12 10:54 | Emergency (ER) | payer MEDICAID ==
[2017-12-12] MEDS ORDERED: HYDROmorphone 1 MG/ML Syringe IVPUSH PRN (11:43)
[2017-12-12] MEDS ORDERED: Ondansetron 4 MG/2 ML SDV IVPUSH ONE ×2 (11:44→12:40)
[2017-12-12] MEDS ORDERED: Lactated Ringers 1,000 ML IV SCH (11:45)
--- NOTE | 2017-12-12 12:10 | EDM.PDOC ---
ED HPI GENERAL MEDICAL PROBLEM - General Chief Complaint: Abdominal Pain Stated Complaint: SPASMS & PAIN IN ABD/VOMITING Time Seen by Provider: 12/12/17 11:15 - History of Present Illness INITIAL COMMENTS - FREE TEXT/NARRATIVE: 42 yo with hx of gastric bypass surgery who presents concerns of epigastric pain , nausea/vomiting. Reports that symptoms started 3 days ago. She has had progressive, constant, "achy" epigastric pain with some radation into the R flank. Associated vomiting, reports some coffee tinge this AM. Also associated with diminshed flatus and BMs (mo movement of gas for three days). She has a history of SBO, has concerns todays symptoms represent this. No fever. No urinary symptoms, hx of frequent UTIs. No etoh. S/p cholecystectomy. Onset: Sudden Duration: Day(s): Location: Reports: Abdomen Quality: Reports: Ache Severity: Moderate Improves with: Reports: None Worsens with: Reports: None Associated Symptoms: Reports: Nausea/Vomiting. Denies: Chest Pain, Shortness of Breath Middle Abdomen Pain Score (Numeric/FACES): 9 - Related Data Allergies Allergy/AdvReac Type Severity Reaction Status Date / Time Sulfa (Sulfonamide Allergy Intermediate Hives Verified 10/04/17 00:41 Antibiotics) Home Meds: Home Meds Ca Cmb No.1/Vit D3/B-6/FA/B12 [Vitamin D3 1,000 Unit] 1 each PO BID 01/05/13 [ History] Calcium Citrate 1 tab PO BID 01/05/13 [History] Iron,Carbonyl/Ascorbic Acid [Vitron-C Tablet] 125 mg PO DAILY 01/05/13 [History] Multivitamin [Multivitamins] 1 each PO BID 01/05/13 [History] Vit B12/Fa/Pyridoxine HCl/AA15 [Glycotrol] 1,000 mcg SL BID 01/05/13 [History] Vitamin B Complex [B-100 Complex] 1 tab PO DAILY 06/27/15 [History] Melatonin 12 mg PO BEDTIME 06/28/15 [History] Zolpidem Tartrate [Ambien] 5 mg PO BEDTIME 05/31/17 [History] Sucralfate [Carafate] 0.5 gm PO Q6H #600 ml 06/02/17 [Rx] Ondansetron [Zofran ODT] 4 mg PO Q4H PRN #10 tab.dis 12/12/17 [Rx] Sucralfate 0.5 gm PO QID #30 tablet 12/12/17 [Rx] Past Medical History HEENT History: Reports: Impaired Vision Gastrointestinal History: Reports: Bowel Obstruction, Cholelithiasis, Hiatal Hernia, Other (See Below) Other Gastrointestinal History: ulcer Genitourinary History: Reports: UTI, Recurrent 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, Endometriosis, Musculoskeletal History: Reports: None Psychiatric History: Reports: Depression Endocrine/Metabolic History: Reports: Hypothyroidism Hematologic History: Reports: B12 Deficiency - Infectious Disease History Infectious Disease History: Reports: Chicken Pox - Past Surgical History HEENT Surgical History: Reports: None GI Surgical History: Reports: Bariatric Procedure, Cholecystectomy, Colon, Esophageal Dilatation, Elisha Fundoplication Female Surgical History: Reports: Section, D&C, Hysterectomy Endocrine Surgical History: Reports: None Social & Family History - Family History Family Medical History: Noncontributory - Tobacco Use Smoking Status *Q: Never Smoker - Caffeine Use Caffeine Use: Reports: None - Recreational Drug Use Recreational Drug Use: No ED ROS GENERAL - Review of Systems Review Of Systems: See Below Constitutional: Denies: Fever, Chills HEENT: Reports: No Symptoms Respiratory: Denies: Shortness of Breath, Cough Cardiovascular: Denies: Chest Pain Endocrine: Reports: No Symptoms GI/Abdominal: Reports: Abdominal Pain, Constipation, Hematemesis. Denies: Flatus : Reports: No Symptoms. Denies: Dysuria, Frequency Musculoskeletal: Reports: No Symptoms Skin: Reports: No Symptoms Neurological: Reports: No Symptoms Psychiatric: Reports: No Symptoms Hematologic/Lymphatic: Reports: No Symptoms Immunologic: Reports: No Symptoms ED EXAM, GI/ABD - Physical Exam Exam: See Below Exam Limited By: No Limitations General Appearance: Alert, No Apparent Distress Eyes: Left: Normal Appearance Ears: Normal External Exam Nose: Normal Inspection Head: Atraumatic, Normocephalic Neck: Supple, Non-Tender Respiratory/Chest: No Respiratory Distress, Lungs Clear Cardiovascular: Regular Rate, Rhythm, No Murmur, No Rub GI/Abdominal Exam: Soft, Tender (epigastric, right flank, suprapubic) (Female) Exam: Deferred Rectal (Female) Exam: Deferred Back Exam: Normal Inspection Extremities: Normal Inspection Neurological: Alert, Oriented Psychiatric: Normal Affect Skin Exam: Warm, Dry Course - Vital Signs Last Recorded V/S: Last Vital Signs Temp 36.8 C 12/12/17 11:14 Pulse 59 L 12/12/17 15:08 Resp 20 12/12/17 15:08 BP 106/59 L 12/12/17 15:08 Pulse Ox 99 12/12/17 15:08 - Orders/Labs/Meds Orders: Active Orders 24 hr Category Date Time Status Abdomen Pelvis w Cont [CT] Stat Exams 12/12/17 11:40 Taken UA W/MICROSCOPIC [URIN] Stat Lab 12/12/17 13:55 Ordered HYDROmorphone [Dilaudid] Med 12/12/17 11:43 Active 1 mg IVPUSH Q4H PRN Iopamidol [Isovue-300 (61%)] Med 12/12/17 12:45 Active 100 ml IV . DIRECTED Lactated Ringers [Ringers, Lactated] 1,000 ml Med 12/12/17 11:45 Active IV ASDIRECTED Sodium Chloride 0.9% [Normal Saline] 100 ml Med 12/12/17 12:45 Active IV ASDIRECTED Medication Orders Hydromorphone HCl (Dilaudid) 1 mg IVPUSH Q4H PRN PRN Reason: Pain Last Admin: 12/12/17 11:58 Dose: 1 mg Lactated Ringer's (Ringers, Lactated) 1,000 mls @ 1,000 mls/hr IV ASDIRECTED ETTA Last Admin: 12/12/17 11:58 Dose: 1,000 mls/hr Sodium Chloride (Normal Saline) 100 mls @ 3 mls/sec IV ASDIRECTED ETTA Last Admin: 12/12/17 12:58 Dose: 3 mls/sec Iopamidol (Isovue-300 (61%)) 100 ml IV . DIRECTED ETTA Last Admin: 12/12/17 12:58 Dose: 100 ml Labs: Laboratory Tests 12/12/17 12/12/17 12/12/17 Range/Units 11:40 12:16 13:55 WBC 7.4 (4.5-11.0) K/uL RBC 4.47 (3.30-5.50) M/uL Hgb 13.5 (12.0-15.0) g/dL Hct 40.7 (36.0-48.0) % MCV 91 (80-98) fL MCH 30 (27-31) pg MCHC 33 (32-36) % Plt Count 293 (150-400) K/uL Sodium 140 (140-148) mmol/L Potassium 3.6 (3.6-5.2) mmol/L Chloride 104 (100-108) mmol/L Carbon Dioxide 23 (21-32) mmol/L Anion Gap 12.9 (5.0-14.0) mmol/L BUN 9 D (7-18) mg/dL Creatinine 0.8 (0.6-1.0) mg/dL Est Cr Clr Drug Dosing 84.88 mL/min Estimated GFR (MDRD) > 60 (>60) Glucose 90 (74-106) mg/dL Calcium 8.9 (8.5-10.1) mg/dL Total Bilirubin 0.7 (0.2-1.0) mg/dL AST 22 (15-37) U/L ALT 19 (12-78) U/L Alkaline Phosphatase 73 (46-116) U/L Total Protein 7.4 (6.4-8.2) g/dL Albumin 4.0 (3.4-5.0) g/dL Globulin 3.4 (2.3-3.5) g/dL Albumin/Globulin Ratio 1.2 (1.2-2.2) Lipase 84 (73-393) U/L Urine Color Yellow Urine Appearance Clear Urine pH 8.0 (4.5-8.0) Ur Specific [place] 1.010 (1.008-1.030) Urine Protein Negative (NEGATIVE) mg/dL Urine Glucose (UA) Normal (NEGATIVE) mg/dL Urine Ketones 50 H (NEGATIVE) mg/dL Urine Occult Blood Negative (NEGATIVE) Urine Nitrite Negative (NEGATIVE) Urine Bilirubin Negative (NEGATIVE) Urine Urobilinogen Normal (NORMAL) mg/dL Ur Leukocyte Esterase Negative (NEGATIVE) Urine RBC Not seen (0-5) Urine WBC 0-5 (0-5) Ur Epithelial Cells Not seen Amorphous Sediment Not seen Urine Bacteria Rare Urine Mucus Not seen Meds: Medications Generic Name Dose Route Start Last Admin Trade Name Freq PRN Reason Stop Dose Admin Hydromorphone HCl 1 mg 12/12/17 11:43 12/12/17 11:58 Dilaudid IVPUSH 1 mg Q4H PRN Administration Pain Lactated Ringer's 1,000 mls @ 1,000 mls/hr 12/12/17 11:45 12/12/17 11:58 Ringers, Lactated IV 1,000 mls/hr ASDIRECTED ETTA Administration Sodium Chloride 100 mls @ 3 mls/sec 12/12/17 12:45 12/12/17 12:58 Normal Saline IV 3 mls/sec ASDIRECTED ETTA Administration Iopamidol 100 ml 12/12/17 12:45 12/12/17 12:58 Isovue-300 (61%) IV 100 ml . DIRECTED ETTA Administration Discontinued Medications Generic Name Dose Route Start Last Admin Trade Name Freq PRN Reason Stop Dose Admin Al Hydroxide/Mg Hydroxide 15 0 ml 12/12/17 14:48 12/12/17 14:59 ml/ Lidocaine HCl 15 ml PO 12/12/17 14:49 30 ml ONETIME ONE Administration Prochlorperazine Edisylate 5 51 mls @ 150 mls/hr 12/12/17 13:52 12/12/17 14: 08 mg/ Sodium Chloride IV 12/12/17 14:12 150 mls/hr ONETIME ONE Administration Ondansetron HCl 4 mg 12/12/17 11:44 12/12/17 11:58 Zofran IVPUSH 12/12/17 11:45 4 mg ONETIME ONE Administration Ondansetron HCl 4 mg 12/12/17 12:40 12/12/17 12:55 Zofran IVPUSH 12/12/17 12:41 4 mg ONETIME ONE Administration Departure - Departure Time of Disposition: 15:45 Disposition: Home, Self-Care 01 Condition: Good Clinical Impression: Gastritis - Discharge Information *PRESCRIPTION DRUG MONITORING PROGRAM REVIEWED*: No *COPY OF PRESCRIPTION DRUG MONITORING REPORT IN PATIENT NELLI: No Prescriptions: Ondansetron [Zofran ODT] 4 mg PO Q4H PRN #10 tab.dis PRN Reason: Nausea Sucralfate 0.5 gm PO QID #30 tablet Instructions: Gastritis, Adult, [id number] Referrals: PCP,None [Primary Care Provider] - Forms: ED Department Discharge Additional Instructions: We believe your symptoms are due to gastritis. Please make a follow up appointment with Dr Parr's office this week Take the prescribed sucralfate in addition to the omeprazole prescribed by your doctor's office. Use the zofran as needed for nausea If you have continued constipation stool softeners are available over the counter, miralax also works well for this. - Problem List & Annotations (1) Gastric bypass status for obesity SNOMED Code(s): 231308300, 727243474, 253975400, 382450036 Code(s): Z98.84 - BARIATRIC SURGERY STATUS Status: Chronic Current Visit : No - My Orders Last 24 Hours: My Active Orders 12/12/17 11:40 Abdomen Pelvis w Cont [CT] Stat 12/12/17 11:43 HYDROmorphone [Dilaudid] 1 mg IVPUSH Q4H PRN 12/12/17 11:45 Lactated Ringers [Ringers, Lactated] 1,000 ml IV ASDIRECTED 12/12/17 12:45 Iopamidol [Isovue-300 (61%)] 100 ml IV . DIRECTED Sodium Chloride 0.9% [Normal Saline] 100 ml IV ASDIRECTED 12/12/17 13:55 UA W/MICROSCOPIC [URIN] Stat - Assessment/Plan Last 24 Hours: My Active Orders 12/12/17 11:40 Abdomen Pelvis w Cont [CT] Stat 12/12/17 11:43 HYDROmorphone [Dilaudid] 1 mg IVPUSH Q4H PRN 12/12/17 11:45 Lactated Ringers [Ringers, Lactated] 1,000 ml IV ASDIRECTED 12/12/17 12:45 Iopamidol [Isovue-300 (61%)] 100 ml IV . DIRECTED Sodium Chloride 0.9% [Normal Saline] 100 ml IV ASDIRECTED 12/12/17 13:55 UA W/MICROSCOPIC [URIN] Stat Assessment:: 42 yo with hx of gastric bypass presents with N/V, epigastric pain, no flatus or BM. Epigastics and R flank tenderness one exam. Normal vitals. Concern for possible recurrent bowel obstruction, other complication of prior surgery vs possible ascending UTI. Plan for abdominal labs, CT abd/pelvis, UA, pain control. Labs, CT unremarkable Suspect discomfort likely due to gastritis, known history of this Started PPI per her surgeon's office several days ago Not on sucralfate, will restart this Short script for zofran Symptomatically much improved Plan for GI cocktail and po challenge with anticipated discharge Spoke with patient's bypass surgeon (Keshav), agreeable with plan
[2017-12-12] MEDS ORDERED: Iopamidol 612 MG/ML 100 ML Bottle IV SCH (12:45)
[2017-12-12] MEDS ORDERED: Sodium Chloride 0.9% 100 ML IV SCH (12:45)
[2017-12-12] MEDS ORDERED: Prochlorperazine 5 MG in Sodium Chloride 0.9% 50 ML IV ONE (13:52)
[2017-12-12] MEDS ORDERED: Alum Hydrox/Mag Hydrox/Simeth 15 ML, Lidocaine 2% 15 ML PO ONE ×2 (14:48)
[2017-12-12 15:09] VITALS: BP 106/59
== END 2017-12-12 15:55 | disposition home or self-care (01) ==
LOC: JP.ED 10:54
DX: K29.70 Gastritis, unspecified, without bleeding (principal); Z88.2 Allergy status to sulfonamides
CPT/HCPCS: 36415; 74177; 80053; 81001; 83690; 85027; 96361; 96365; 96375; 96376; 99284; A9270; J0780; J1170; J2405; J7030; J7050; J7120; Q9967

== ENCOUNTER 2018-08-02 18:35 | Emergency (ER) | payer SELFPAY ==
[2018-08-02 19:10] VITALS: BP 148/87
--- NOTE | 2018-08-02 19:36 | EDM.PDOC ---
ED HPI GENERAL MEDICAL PROBLEM - General Chief Complaint: Headache Stated Complaint: SEVERE HEAD PAIN/VISION BLURRY Time Seen by Provider: 08/02/18 19:00 Source of Information: Reports: Patient History Limitations: Reports: No Limitations - History of Present Illness INITIAL COMMENTS - FREE TEXT/NARRATIVE: 43-year-old female who has had a headache and facial pressure for a month. It started after his serious stuffy head cold and it just won't go away. The pressure is behind her eyes and in her cheeks bilaterally. Tylenol isn't helping. She's been avoiding coming into she has no insurance. No fevers or chills, no cough. She does have bilateral ear pain. Onset: Gradual Duration: Week(s): Headache Pain Score (Numeric/FACES): 10 - Related Data Allergies Allergy/AdvReac Type Severity Reaction Status Date / Time Sulfa (Sulfonamide Allergy Intermediate Hives Verified 08/02/18 19:03 Antibiotics) Home Meds: Home Meds Ca Cmb No.1/Vit D3/B-6/FA/B12 [Vitamin D3 1,000 Unit] 1 each PO BID 01/05/13 [ History] Calcium Citrate 1 tab PO BID 01/05/13 [History] Iron,Carbonyl/Ascorbic Acid [Vitron-C Tablet] 125 mg PO DAILY 01/05/13 [History] Multivitamin [Multivitamins] 1 each PO BID 01/05/13 [History] Vit B12/Fa/Pyridoxine HCl/AA15 [Glycotrol] 1,000 mcg SL BID 01/05/13 [History] Vitamin B Complex [B-100 Complex] 1 tab PO DAILY 06/27/15 [History] Zolpidem Tartrate [Ambien] 5 mg PO BEDTIME 05/31/17 [History] Sucralfate [Carafate] 0.5 gm PO Q6H #600 ml 06/02/17 [Rx] Ondansetron [Zofran ODT] 4 mg PO Q4H PRN #10 tab.dis 12/12/17 [Rx] FLUoxetine [PROzac] 10 mg PO BEDTIME 08/02/18 [History] Past Medical History HEENT History: Reports: Impaired Vision Gastrointestinal History: Reports: Bowel Obstruction, Cholelithiasis, GERD, Hiatal Hernia, PUD, Other (See Below) Other Gastrointestinal History: ulcer Genitourinary History: Reports: UTI, Recurrent 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, Endometriosis, Musculoskeletal History: Reports: None, Fracture Psychiatric History: Reports: Depression Endocrine/Metabolic History: Reports: Hypothyroidism Hematologic History: Reports: Anemia, B12 Deficiency, Folic Acid, Iron Deficiency - Infectious Disease History Infectious Disease History: Reports: Chicken Pox, Mononucleosis - Past Surgical History HEENT Surgical History: Reports: None GI Surgical History: Reports: Bariatric Procedure, Cholecystectomy, Colon, EGD, Esophageal Dilatation, Hernia Repair/Other, Elisha Fundoplication Female Surgical History: Reports: Section, D&C, Hysterectomy Endocrine Surgical History: Reports: None Social & Family History - Family History Family Medical History: Noncontributory - Tobacco Use Smoking Status *Q: Never Smoker - Caffeine Use Caffeine Use: Reports: None - Recreational Drug Use Recreational Drug Use: No ED ROS GENERAL - Review of Systems Review Of Systems: See Below (3-4 weeks) Constitutional: Reports: Malaise. Denies: Fever, Chills HEENT: Reports: Ear Pain, Sinus Problem Respiratory: Denies: Shortness of Breath, Cough Cardiovascular: Denies: Chest Pain GI/Abdominal: Denies: Nausea, Vomiting Skin: Reports: No Symptoms Neurological: Reports: Headache - Physical Exam Exam: See Below Exam Limited By: No Limitations General Appearance: Alert, No Apparent Distress (Looks uncomfortable but not distressed) Eye Exam: Bilateral Eye: EOMI Ears: Other (Some clear fluid behind the right tympanic membrane, no inflammation, left is normal) Head Exam: Atraumatic, Facial Tenderness (Significant percussion facial tenderness to both maxillary and ethmoid sinus areas) Respiratory/Chest: No Respiratory Distress Course - Vital Signs Last Recorded V/S: Last Vital Signs Temp 97.0 F 08/02/18 19:10 Pulse 60 08/02/18 19:10 Resp 18 08/02/18 19:10 BP 148/87 H 08/02/18 19:10 Pulse Ox 100 08/02/18 19:10 - Re-Assessments/Exams Free Text/Narrative Re-Assessment/Exam: 08/02/18 19:35 Patient wanted to avoid testing if possible. A trial of Augmentin 875 mg twice daily for 10 days will be given along with 10 hydrocodone for extra pain control. If she is not improving in the next 3-4 days she should recheck. Departure - Departure Time of Disposition: 20:09 Disposition: Home, Self-Care 01 Condition: Good Clinical Impression: Sinusitis - Discharge Information Instructions: Sinusitis, Adult, [id number] Referrals: PCP,None [Primary Care Provider] - Forms: ED Department Discharge Care Plan Goals: Take antibiotic with food twice daily for a full 10 days. Use pain medication for breakthrough pain as needed. Consider rechecking if not improving in 4-5 days.
== END 2018-08-02 20:10 | disposition home or self-care (01) ==
LOC: JP.ED 18:35
DX: J32.9 Chronic sinusitis, unspecified (principal); K21.9 Gastro-esophageal reflux disease without esophagitis; E03.9 Hypothyroidism, unspecified; Z88.2 Allergy status to sulfonamides; Z79.899 Other long term (current) drug therapy
CPT/HCPCS: 99283

== ENCOUNTER 2019-01-16 21:37 | Emergency (ER) | payer SELFPAY ==
[2019-01-16 21:46] VITALS: BP 148/68; PULSE 68
[2019-01-16] MEDS ORDERED: LORazepam 2 MG/ML SDV IM ONE (21:55)
--- NOTE | 2019-01-16 22:06 | EDM.PDOC ---
ED HPI GENERAL MEDICAL PROBLEM - General Chief Complaint: Neuro Symptoms/Deficits Stated Complaint: MEDICAL Time Seen by Provider: 01/16/19 21:45 Source of Information: Reports: Patient, RN Notes Reviewed History Limitations: Reports: No Limitations - History of Present Illness INITIAL COMMENTS - FREE TEXT/NARRATIVE: 43-year-old female presents emergency department today complaint of headache behind her right eye which is new for her she also complains of blurry vision in the right eye she's had no loss of vision she also states that she's having symptoms where it's difficult for her to put thoughts forward and feels like she has to focus on when to move her hand and went to make a step with her lower extremities. The symptoms started about an hour and a half prior she has recently had some difficulty in her life with loss of her job. 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, Endometriosis, Musculoskeletal History: Reports: Fracture Psychiatric History: Reports: Depression Endocrine/Metabolic History: Reports: Hypothyroidism Hematologic History: Reports: Anemia, B12 Deficiency, Folic Acid, Iron Deficiency - Infectious Disease History Infectious Disease History: Reports: Chicken Pox, Mononucleosis - Past Surgical History HEENT Surgical History: Reports: None GI Surgical History: Reports: Bariatric Procedure, Cholecystectomy, Colon, EGD, Esophageal Dilatation, Hernia Repair/Other, Elisha Fundoplication Female Surgical History: Reports: Section, D&C, Hysterectomy Endocrine Surgical History: Reports: None Social & Family History - Family History Family Medical History: Noncontributory - Caffeine Use Caffeine Use: Reports: None ED ROS GENERAL - Review of Systems Review Of Systems: See Below Constitutional: Denies: Fever, Chills HEENT: Reports: Vision Change Respiratory: Reports: No Symptoms Cardiovascular: Reports: No Symptoms GI/Abdominal: Reports: No Symptoms : Reports: No Symptoms Musculoskeletal: Reports: No Symptoms Skin: Reports: No Symptoms Neurological: Reports: Confusion, Headache ED EXAM, NEURO - Physical Exam Exam: See Below Exam Limited By: No Limitations General Appearance: Alert, Anxious Eye Exam: Bilateral Eye: EOMI, Normal Fundi, Normal Inspection, PERRL Respiratory/Chest: No Respiratory Distress, Lungs Clear, Normal Breath Sounds, No Accessory Muscle Use, Chest Non-Tender Cardiovascular: Regular Rate, Rhythm, No Murmur GI/Abdominal: Soft, Non-Tender Neurological: Alert, CN II-XII Intact, No Motor/Sensory Deficits, Oriented x 3, Other (Hook 5 x 5 upper and lower extremities) Course - Vital Signs Last Recorded V/S: Last Vital Signs Temp 97.7 F 01/16/19 22:09 Pulse 68 01/16/19 22:09 Resp 12 01/16/19 22:09 BP 148/68 H 01/16/19 22:09 Pulse Ox 97 01/16/19 22:09 - Orders/Labs/Meds Labs: Laboratory Tests 01/16/19 01/16/19 01/16/19 Range/Units 22:05 22:05 22:53 WBC 5.6 (4.5-11.0) K/uL RBC 4.20 (3.30-5.50) M/uL Hgb 12.7 (12.0-15.0) g/dL Hct 39.0 (36.0-48.0) % MCV 93 (80-98) fL MCH 30 (27-31) pg MCHC 33 (32-36) % Plt Count 280 (150-400) K/uL Neut % (Auto) 59 (36-66) % Lymph % (Auto) 30 (24-44) % [place] % (Auto) 9 H (2-6) % Eos % (Auto) 2 (2-4) % Baso % (Auto) 0 (0-1) % Sodium 141 (140-148) mmol/L Potassium 3.8 (3.6-5.2) mmol/L Chloride 105 (100-108) mmol/L Carbon Dioxide 26 (21-32) mmol/L Anion Gap 9.8 (5.0-14.0) mmol/L BUN 8 (7-18) mg/dL Creatinine 0.8 (0.6-1.0) mg/dL Est Cr Clr Drug Dosing 84.01 mL/min Estimated GFR (MDRD) > 60 (>60) Glucose 99 (74-106) mg/dL Calcium 8.4 L (8.5-10.1) mg/dL Total Bilirubin 0.4 (0.2-1.0) mg/dL AST 22 (15-37) U/L ALT 22 (12-78) U/L Alkaline Phosphatase 85 (46-116) U/L Total Protein 7.4 (6.4-8.2) g/dL Albumin 3.8 (3.4-5.0) g/dL Globulin 3.6 H (2.3-3.5) g/dL Albumin/Globulin Ratio 1.1 L (1.2-2.2) TSH, Ultra Sensitive 2.311 (0.358-3.740) uIU/mL Meds: Medications Discontinued Medications Generic Name Dose Route Start Last Admin Trade Name Freq PRN Reason Stop Dose Admin Lorazepam 1 mg 01/16/19 21:55 01/16/19 22:19 Ativan IM 01/16/19 21:56 1 mg ONETIME ONE Administration Departure - Departure Time of Disposition: 23:31 Disposition: Home, Self-Care 01 Condition: Fair Clinical Impression: Brain fag - Discharge Information Referrals: PCP,None [Primary Care Provider] - Forms: ED Department Discharge Additional Instructions: Please followup with your primary care provider in 3-5 days if not better, please call return to the emergency department with worsening of symptoms. - Assessment/Plan Plan: Assessment Acuity = acute Site and laterality = brain fag Etiology = secondary to stress and anxiety Manifestations = none Location of injury = Home Lab values = CBC, CMP, TSH, CT scan head all unremarkable Plan She was given Ativan 1 mg in the emergency department which did provide some relief, handout was provided on brain, This note was dictated using [employer] voice recognition software please call with any questions on syntax or grammar.
--- NOTE | 2019-01-16 22:46 | CRLCT ---
INDICATION: headache behind right eye CT HEAD WITHOUT CONTRAST TECHNIQUE: Multiple axial CT images were performed through the head without intravenous contrast administration. COMPARISON: No previous studies are currently available for comparison. FINDINGS: No acute intracranial hemorrhage is identified. No extra-axial collections are evident and there is no mass effect or midline shift. Ventricles are normal in size and configuration. Brain parenchyma appears normal with unremarkable lopez-white differentiation. Osseous structures are within normal limits and no fractures are seen. Included portions of the paranasal sinuses and mastoid air cells are normally aerated. IMPRESSION: Normal non-contrast head CT. FELIZ FERREIRA MD [facility] Dictated by: Roni Ferreira MD @ 01/16/2019 22:44:40 (Electronically Signed)
== END 2019-01-16 23:45 | disposition home or self-care (01) ==
LOC: JP.ED 21:37
DX: G93.89 Other specified disorders of brain (principal); Z86.2 Personal history of diseases of the blood and blood-forming organs and certain disorders involving the immune mechanism; Z88.2 Allergy status to sulfonamides
CPT/HCPCS: 36415; 70450; 80053; 84443; 85025; 96372; 99284; J2060; 99283

== ENCOUNTER 2019-07-05 23:27 | Emergency (ER) | payer SELFPAY | END 2019-07-06 00:04 | disposition left against medical advice (07) | LOC: JP.ED 23:27 | DX: Z53.21 Procedure and treatment not carried out due to patient leaving prior to being seen by health care provider (principal) ==

== ENCOUNTER 2019-08-17 06:52 | Inpatient (IN) | payer MEDICAID, OTHER ==
[2019-08-17] MEDS ORDERED: Acetaminophen 500 MG Tab PO ONE (07:00)
[2019-08-17] MEDS ORDERED: Dextrose 5%-Lactated Ringers 1,000 ML IV SCH (07:30)
[2019-08-17] MEDS ORDERED: Naloxone 0.4 MG/ML SDV IV PRN (07:36)
[2019-08-17] MEDS ORDERED: HYDROmorphone/Normal Saline 15 MG/30 ML PCA IV PRN (07:36)
[2019-08-17] MEDS ORDERED: Dexamethasone 4 MG/ML SDV ONE (07:44)
[2019-08-17] MEDS ORDERED: Rocuronium 50 MG/5 ML Vial ONE (07:44)
[2019-08-17] MEDS ORDERED: Neostigmine Methylsulfate 1 MG/ML 5 ML Syringe ONE (07:44)
[2019-08-17] MEDS ORDERED: Succinylcholine 200 MG/10 ML MDV ONE (07:44)
[2019-08-17] MEDS ORDERED: Glycopyrrolate 0.2 MG/ML 5 ML MDV ONE (07:44)
[2019-08-17] MEDS ORDERED: Propofol 200 MG/20 ML SDV ONE (07:44)
[2019-08-17] MEDS ORDERED: Ondansetron 4 MG/2 ML SDV ONE (07:44)
[2019-08-17] MEDS ORDERED: fentaNYL 250 MCG/5 ML SDV ONE ×2 (07:46→10:13)
[2019-08-17] MEDS ORDERED: Ketorolac 60 MG/2 ML SDV ONE (07:52)
[2019-08-17] MEDS ORDERED: Scopolamine 1.5 MG Transdermal Patch TRDERM SCH (08:00)
[2019-08-17] MEDS ORDERED: cefOXitin 2 GM in Sodium Chloride 0.9% 50 ML IV ONE (08:30)
[2019-08-17] MEDS ORDERED: Ketamine 500 MG/5 ML MDV IV SCH (08:45)
[2019-08-17] MEDS ORDERED: Ketamine 50 MG in Sodium Chloride 0.9% 49.5 ML IV SCH (08:45)
[2019-08-17] MEDS ORDERED: Ropivacaine 40 ML, dexAMETHasone 8 MG, EPINEPHrine 0.4 MG, Sodium Chloride 0.9% 37.6 ML NERVRT SCH ×4 (08:45)
[2019-08-17] MEDS: Bupivacaine 0.5% 50 ML MDV ONE ×2 (10:47→11:00)
[2019-08-17] MEDS: Lidocaine 1% with EPINEPHrine 1:100,000 50 ML MDV ONE ×2 (10:47→11:00)
[2019-08-17] MEDS ORDERED: Lactated Ringers 1,000 ML ONE (10:56)
[2019-08-17] MEDS ORDERED: Meropenem 500 MG SDV IRR ONE (10:58)
[2019-08-17] MEDS ORDERED: hydrOXYzine HCL 100 MG/2 ML SDV IM ONE (11:33)
[2019-08-17] MEDS ORDERED: Metoclopramide 10 MG/2 ML SDV IVPUSH ONE (11:52)
[2019-08-17] MEDS ORDERED: Labetalol 20 MG/4 ML Syringe IVPUSH PRN (12:43)
[2019-08-17] MEDS ORDERED: Ondansetron 4 MG/2 ML SDV IVPUSH PRN (12:43)
[2019-08-17] MEDS ORDERED: diphenhydrAMINE 50 MG/ML SDV IVPUSH PRN (12:43)
[2019-08-17] MEDS ORDERED: Acetaminophen 500 MG Tab PO PRN (12:43)
[2019-08-17] MEDS ORDERED: hydrOXYzine HCL 100 MG/2 ML SDV IM PRN (12:43)
[2019-08-17] MEDS: Dextrose 5%-Lactated Ringers 1,000 ML IV SCH ×2 (13:15→22:19)
[2019-08-17] MEDS: Acetaminophen 500 MG Tab PO SCH ×2 (14:39→22:18)
[2019-08-17] MEDS: cefOXitin 2 GM in Sodium Chloride 0.9% 50 ML IV SCH ×2 (15:45→22:17)
[2019-08-17] MEDS: Pantoprazole 40 MG Vial IVPUSH SCH (15:45)
[2019-08-17] MEDS ORDERED: MVI, Adult with Vitamin K 10 ML, Thiamine 200 MG, Chromium/Copper/Mang/Selen/Zn 1 ML in... IV SCH ×4 (16:00)
[2019-08-17] MEDS: Metoclopramide 10 MG/2 ML SDV IVPUSH PRN (17:53)
[2019-08-17] MEDS: Cyclobenzaprine 10 MG Tab PO PRN (19:54)
[2019-08-17] MEDS: Heparin Sodium 5,000 Units/ML Vial SUBCUT SCH ×2 (19:55→20:03)
[2019-08-17] MEDS: oxyCODONE 5 MG Tab PO PRN (20:30)
[2019-08-18] MEDS: HYDROmorphone 0.5 MG/0.5 ML Syringe IVPUSH PRN ×2 (00:29→04:54)
[2019-08-18] MEDS: Metoclopramide 10 MG/2 ML SDV IVPUSH PRN ×2 (00:29→09:04)
[2019-08-18] MEDS: oxyCODONE 5 MG Tab PO PRN ×7 (01:33→22:20)
[2019-08-18] MEDS: cefOXitin 2 GM in Sodium Chloride 0.9% 50 ML IV SCH (04:00)
[2019-08-18] MEDS: Cyclobenzaprine 10 MG Tab PO PRN ×3 (04:00→19:46)
[2019-08-18] MEDS: Dextrose 5%-Lactated Ringers 1,000 ML IV SCH (04:03)
[2019-08-18] MEDS: Acetaminophen 500 MG Tab PO SCH ×4 (04:55→21:01)
[2019-08-18] MEDS ORDERED: Iopamidol 510 MG/ML 50 ML SDV PO ONE (05:10)
[2019-08-18] MEDS ORDERED: Ondansetron 4 MG Tab.DIS PO PRN (06:59)
[2019-08-18] MEDS ORDERED: Dextrose 5%-Lactated Ringers 1,000 ML IV SCH (07:00)
[2019-08-18] MEDS: Heparin Sodium 5,000 Units/ML Vial SUBCUT SCH ×2 (08:01→19:46)
[2019-08-18] MEDS: SCOPOLAMINE PATCH CHECK TOP SCH (08:01)
[2019-08-18] MEDS: Celecoxib 200 MG Cap PO SCH ×2 (08:01→21:01)
--- NOTE | 2019-08-18 09:35 | PN ---
DATE OF SERVICE: 08/18/2019 SUBJECTIVE: Saima states her pain is controlled with the exception of her right shoulder. She has had a temperature max of 99.6. Has been up ambulating. Oral intake 826 and urine output 2350. Remainder of review of systems negative for any pertinent positives and negatives. OBJECTIVE: GENERAL: Saima is a pleasant 44-year-old female. VITAL SIGNS: TPR at 0404; 99.6, 72, 18, blood pressure 114/73. HEENT: Negative. NECK: Supple. HEART: Regular rate and rhythm. LUNGS: Clear. ABDOMEN: Dressings dry and intact. Abdominal binder is on. EXTREMITIES: Without peripheral edema. ASSESSMENT: 1. Exploratory laparotomy with lysis of adhesions. 2. Right salpingo-oophorectomy. 3. Small-bowel resection. 4. Secondary enteroenterostomy to restore Nalini-en-Y small bowel anatomy. 5. Mobilization of omentum into pelvis. POSTOPERATIVE DIAGNOSES: 1. Right ovarian cyst. 2. Partial small bowel obstruction of the jejunojejunostomy. Date of surgery: 08/17/2019. Surgeon: Phong Parr MD. PLAN: 1. May shower. 2. Step 3 gastric bypass diet. 3. Celebrex 200 mg b.i.d. by mouth. 4. Decrease D5 LR to 100 mL per hour. 5. Atarax 25 mg every 6 hours p.r.n. additional pain. 6. Zofran ODT 4 mg every 4 hours p.r.n. nausea, vomiting. 7. Oxycodone take 1 to 2 every 4 hours p.r.n. pain. 8. Discontinue IV Dilaudid. 9. Discontinue cardiac monitoring and continuous pulse ox. 10.Continue working on encouraging the patient to use incentive spirometer 10 times every hour while awake. 11.We will evaluate p.r.n. or in a.m. Domonique Wray PA-C /[id number]
[2019-08-18] MEDS: Pantoprazole 40 MG Vial IVPUSH SCH (17:28)
[2019-08-18] MEDS: hydrOXYzine HCl 25 MG Tab PO PRN (22:57)
[2019-08-19] MEDS: oxyCODONE 5 MG Tab PO PRN ×2 (02:18→09:00)
[2019-08-19] MEDS: Cyclobenzaprine 10 MG Tab PO PRN (04:00)
[2019-08-19] MEDS: hydrOXYzine HCl 25 MG Tab PO PRN (04:00)
[2019-08-19] MEDS: Acetaminophen 500 MG Tab PO SCH (05:24)
[2019-08-19] MEDS ORDERED: Magnesium Hydroxide 400 MG/5 ML Susp 30 ML Cup PO PRN (07:36)
[2019-08-19 07:48] VITALS: BP 98/58; PULSE 72
[2019-08-19] MEDS: Heparin Sodium 5,000 Units/ML Vial SUBCUT SCH (08:48)
[2019-08-19] MEDS: SCOPOLAMINE PATCH CHECK TOP SCH (08:48)
[2019-08-19] MEDS: Celecoxib 200 MG Cap PO SCH (08:48)
[2019-08-19] MEDS ORDERED: Cyanocobalamin (Vitamin B12) 1,000 MCG/ML SDV IM ONE (09:00)
--- NOTE | 2019-08-20 10:18 | DISCH ---
FINAL DIAGNOSES: 1. Right ovarian cyst. 2. Partial small bowel obstruction at jejunojejunostomy. SECONDARY DIAGNOSES: 1. Bariatric surgery status. 2. History of anxiety and depression. OPERATIVE PROCEDURE: Done on 08/16. Exploratory laparotomy with lysis of adhesions. 1. Right salpingo-oophorectomy. 2. Small bowel resection. 3. Secondary enteroenterostomy to restore Nalini-en-Y small bowel anatomy. 4. Mobilization of omentum into pelvis to limit recurrent adhesion formation between pelvic and abdominal wall. SUMMARY: This is a 44-year-old status post Nalini-en-Y gastric bypass. She is having some chronic lower abdominal pain workup and showed a multiloculated right ovarian cyst. The patient is otherwise status post previous hysterectomy and left salpingo-oophorectomy. At the time of exploration, the ovarian cyst was excised along with a portion of the tube and this was removed intact. All the ovarian tissue appeared to be removed as the ovarian tissue remaining occupied a large portion of the cyst wall, is also noted to have what appeared to be partial small bowel obstruction at the jejunojejunostomy and this was resected and revised. As the patient's pain for the most part appeared to be GI tract in nature rather than related to the ovarian cyst per se. Postoperatively, the patient has done well. She is using a step 3 diet, pain control is adequate, and she is passing some gas, no bowel movement as of yet. She will be discharged home on her usual medications plus: 1. Oxycodone 5 to 10 mg p.o. q.4 hours p.r.n. pain #42, 5 mg tablets. 2. Atarax 25 mg p.o. q.4 hours p.r.n. pain, #30, refill x1. 3. Flexeril 10 mg p.o. t.i.d. p.r.n. muscle spasms, #30, with refill x1. 4. Colace 100 mg p.o. b.i.d. x1 month and p.r.n. 5. She is also instructed that she can take Tylenol 1 g q.6 hours p.r.n. pain. 6. She will be sent home with 2 doses of milk of magnesia to help with bowel function. Could be following up with Domonique Wray at [facility] on 08/25/2019 and also she will be instructed to get a consultation with Angela Lopes PA-C, at [facility] regarding the issue of hormone replacement.
--- NOTE | 2019-08-21 11:33 | CR ---
[facility] [employer] HISTORY: Postbariatric surgery FINDINGS: Patient swallowed water-soluble contrast. Upright views of the abdomen show no evidence of extravasation or obstruction. IMPRESSION: Status post bariatric surgery No extravasation or obstruction seen
--- NOTE | 2019-08-30 13:39 | OR ---
DATE OF PROCEDURE: 08/17/2019 SURGEON: Phong Parr MD PREOPERATIVE DIAGNOSES: 1. Probable partial small bowel obstruction. 2. Right ovarian cyst. POSTOPERATIVE DIAGNOSES: 1. Partial small bowel obstruction at jejunojejunostomy. 2. Right ovarian cyst. OPERATIVE PROCEDURES: Exploratory laparotomy with lysis of adhesions and, 1. Right salpingo-oophorectomy (81871). 2. Small bowel resection (65518). 3. Secondary enteroenterostomy to restore Nalini-en-Y small bowel anatomy (70302). 4. Mobilization of omentum into pelvis to limit adhesion formation between pelvic and abdominal de jesus and underlying viscera (89763). ANESTHESIA: General. SCALER: ANAMIKA Molina INDICATIONS FOR PROCEDURE: This is a 44-year-old status post previous Nalini-en-Y gastric bypass, presenting with a picture of partial small bowel obstruction. She also has a right ovarian cyst, which appears to be fairly symptomatic. She is status post previous hysterectomy and left salpingo-oophorectomy. She is aware that cysts of this size will likely require removal of the ovary, which would cause surgical menopause, for which she will need to have potentially some hormone replacement. Otherwise, with regard to the small bowel, potential risks including bleeding, infection, leaks from various GI tract closures, as well as possibility of recurrent obstructive findings over time were reviewed with the patient and she wishes to proceed. DETAILS OF PROCEDURE: The patient was taken to the operating room and placed in a supine position. After general endotracheal anesthesia was induced, a Small catheter was inserted, and the abdomen was prepped and draped. A midline incision from the umbilicus roughly a handsbreadth toward the xiphoid was made and carried down through the full-thickness abdominal wall. Upon entering peritoneal cavity, general exploration was undertaken. The patient was noted to have significant amount of narrowing at the point where the Nalini limb entered the jejunojejunostomy, and the bowel at that level was quite distended. The biliopancreatic limb also appeared to be somewhat distended, all consistent with a partial small bowel obstruction. Remainder of the small bowel was unremarkable. As one felt on toward the pelvis, the right ovarian cyst could be identified. This was slightly larger than a golf ball and, as expected, the ovarian substance significant amount of the wall of the ovary. This along with the fact that we would like to get this out intact, in the event that it is neoplastic, led to decision to proceed with salpingo-oophorectomy, that was accomplished with 2 firings of the NESTOR reta and the specimen delivered intact from the field. At this point, the small bowel obstruction was addressed. The 3 components of the jejunojejunostomy were then divided with NESTOR erta, adjacent to the anastomosis, as was the underlying mesentery, and that specimen delivered from the field. The GI tract continuity was initially reestablished with anastomosis between what had been the end of the biliopancreatic limb to the beginning of the common limb with a [id number] enteroenterostomy with an internal firing of the Endo-NESTOR 60 mm stapler. Common opening was then closed transversely with the same stapler, and the angles anastomosed and mesenteric defect approximated with some 3-0 Vicryl stitch and in the case of the mesenteric defect, 2- 0 silk stitch. The GI tract continuity was then completed with uatsdin of the Nalini-en-Y anatomy by anastomosing the end of the Nalini limb to the small bowel roughly 20 cm distal to the first anastomosis. This was accomplished with the same sequence of reta and mesenteric defect was once again closed with 2-0 silk stitch. At this point, no further problems were noted. The abdomen was irrigated with antibiotic-containing saline solution. Bilateral transversus abdominis plane blocks were then placed. The omentum was then mobilized downward into the pelvis to limit adhesion formation between pelvic and abdominal wall, and the underlying viscera. The midline fascia was then approximated with #2 Vicryl stitch, and this layer was anesthetized with 0.5% Marcaine mixed with lidocaine. The subcutaneous tissue was approximated with 2 layers of 3-0 and 4-0 Vicryl stitch deep and then reta for the skin. Dressing was applied. The patient was taken to the recovery room in satisfactory condition. Physician clinical nursing assistant, Domonique Wray, played an essential role in assisting in this case; helping to position the patient, retract structures as needed, as well as suturing and cutting sutures when indicated. Her presence improved patient safety and decreased the operative time. Phong Parr MD /[id number]
== END 2019-08-19 11:13 | disposition home or self-care (01) | DRG 327 ==
LOC: JP.SDSSCHI 06:52 → JP.SDS 06:52 → EDSTATUS 08:30 → JP.MS 11:30
PROVIDERS: ADMIT Surgery; ATTEND Surgery
PROC: 0D160ZA Bypass Stomach to Jejunum, Open Approach (ICD-10-PCS; principal; 2019-08-17)
PROC: 0DB80ZZ Excision of Small Intestine, Open Approach (ICD-10-PCS; 2019-08-17)
PROC: 0UT50ZZ Resection of Right Fallopian Tube, Open Approach (ICD-10-PCS; 2019-08-17)
PROC: 0UT00ZZ Resection of Right Ovary, Open Approach (ICD-10-PCS; 2019-08-17)
DX: K94.19 Other complications of enterostomy (principal); K56.51 Intestinal adhesions [bands], with partial obstruction; N83.201 Unspecified ovarian cyst, right side; F41.9 Anxiety disorder, unspecified; F32.9 Major depressive disorder, single episode, unspecified; Z98.84 Bariatric surgery status; Z90.710 Acquired absence of both cervix and uterus
CPT/HCPCS: 36415; 74240; 74240-26; 86304; 88112; 88305; 88307; A9270-GY; C9113; J0171; J0330; J0694; J1100; J1170; J1644; J1885; J2185; J2405; J2704; J2710; J2765; J2795; J3010; J3410; J3411; J3420; J3490; J7050; J7120; J7121; Q9966

== ENCOUNTER 2019-08-22 10:30 | Inpatient (IN) | payer MEDICAID ==
[2019-08-22] MEDS ORDERED: Acetaminophen 650 MG Supp RECTAL PRN (10:49)
[2019-08-22] MEDS: Pantoprazole 40 MG Vial IV SCH ×2 (11:27→20:54)
[2019-08-22] MEDS ORDERED: Lactated Ringers 1,000 ML IV ONE (11:30)
[2019-08-22] MEDS ORDERED: Coagulation Factor VIIa Recombinant (per MCG) 2 MG Vial IVPUSH ONE (11:30)
--- NOTE | 2019-08-22 14:00 | HP ---
HISTORY OF PRESENT ILLNESS: Saima presented to the clinic with bloody stools. She states she had 3, large, bloody, foul-smelling stools today, and she has started to feel weak and dizzy. Saima had an exploratory laparotomy with lysis of adhesions, right salpingo-oophorectomy, small bowel resection, secondary enteroenterostomy to restore Nalini-en- Y small bowel anatomy and mobilization of omentum into pelvis for right ovarian cyst and partial small bowel obstruction of the jejunojejunostomy on 08/17/2019. She was discharged from the hospital on 08/20/2019. She reports that she had not had a bowel movement while she was in the hospital, but on 08/21/2019, she went to the bathroom. The stool was filled with blood, blood clots, and had a foul odor. She called in to the clinic and discussed with Salima Meehan RN, who consulted with Phong aPrr MD, and he stated that if it occurred again, to follow up in clinic, or if it did not recur again, to have her blood tested at the time of 1st postop. Saima presented today after the 3 stools. Hemoglobin was checked, and it was 9.1. Prior to surgery, her hemoglobin was 13.2. Reports no fever, chills, or night sweats, but she does state she is tired. She has had no headache, but is a little bit lightheaded and feels weak. REVIEW OF SYSTEMS: NECK: Negative. Full range of motion. CHEST: No chest pain. Fast, irregular heart beat. RESPIRATORY: No cough or shortness of breath. ABDOMEN: Denies any pain. No dysphagia. GENITOURINARY: No burning with urination or blood in urine. MUSCULOSKELETAL: No joint pain or swelling. NEUROLOGIC: No history of focal neurologic symptoms or memory changes. PSYCHIATRIC: Negative for any anxiety, depression, or panic. Remainder of review of systems negative for any pertinent positives and negatives. CURRENT MEDICATIONS: See EMR. PAST MEDICAL HISTORY: 1. Unspecified surgical malabsorption. 2. B12 deficiency. 3. Vitamin B1 deficiency. 4. Vitamin D deficiency. 5. Iron deficiency anemia. 6. History of peptic ulcer disease. 7. Hypothyroidism. 8. Depression. 9. Panic disorder. PAST SURGICAL HISTORY: 1. Exploratory laparotomy with lysis of adhesions, right salpingo-oophorectomy, small bowel resection, secondary enteroenterostomy to restore Nalini-en-Y small bowel anatomy and mobilization of omentum into pelvis. Date of surgery 08/17/2019. 2. Status post Nalini-en-Y gastric bypass surgery, 07/13/2011. 3. section. 4. Breast reduction. 5. Multiple EGDs. 6. Total abdominal hysterectomy in 2004. 7. Laparoscopic cholecystectomy in 2012. 8. Partial small bowel obstruction and reduction of volvulus, 05/10/2012. 9. Reduction of volvulus, intussusception, and internal hernia on 01/18/2013. 10.Salpingo oophorectomy, unilateral, 2004. DIET: Step-3 gastric bypass diet. Protein is 65 g. Fluids 64 ounces. Taking all recommended vitamins with the exception of vitamin B 12. SOCIAL HISTORY: She is . Employed at [employer] in [place]. FAMILY HISTORY: Mother: Ovarian cancer. Father: Diabetes, cardiovascular disease. Paternal grandmother had cancer of lung. Paternal grandfather: Diabetes and cardiovascular disease. PHYSICAL EXAMINATION: GENERAL: Saima Walters is a pleasant 44-year-old female. Alert and orientated. Color pale. Appears weak. VITAL SIGNS: Height is 67 inches and weight 173 pounds. TPR 97.4, 91, 16; blood pressure 112/78. HEENT: Negative. NECK: Supple. HEART: Regular rate and rhythm. LUNGS: Clear. ABDOMEN: Dressing dry and intact. Abdominal binder is on. EXTREMITIES: Without peripheral edema. NEUROLOGIC: Cranial nerves 2 through 12 intact. SKIN: Without rash. PSYCHIATRIC: Mood and affect appropriate. ASSESSMENT: 1. Gastrointestinal bleed. 2. Status post exploratory laparotomy with lysis of adhesions, right salpingo- oophorectomy, small bowel resection, secondary enteroenterostomy to restore Nalini-en-Y small bowel anatomy and mobilization of the omentum into pelvis on 08/18/2019. 3. Status post Nalini-en-Y gastric bypass surgery. 4. Unspecified surgical malabsorption. 5. B12 deficiency. 6. Vitamin B1 deficiency. 7. History of iron deficiency anemia. 8. Depression. PLAN: 1. Admit to [facility] for GI bleed. Diet: Clear liquid diet. Activity: Up, ad neil. Vital signs every 2 hours. IV hydration. Lactated Ringer's to run over 1 hour. 2. D5 LR at 150 mL per hour. 3. Labs: Check CBC every 2 hours, call with results. 4. Tylenol 650 mg p.o. q.4 hours p.r.n. pain or fever. 5. SCDs. 6. Type and crossmatch for 2 units of packed red blood cells, have 2 units available. 7. Protonix 40 mg IV b.i.d. 8. Activated factor VII, 2 doses IV. 9. Tranexamic acid 790 mg now, repeat in 3 hours. 10.Intake and output. 11.We will evaluate p.r.n. or in a.m. Domonique Wray PA-C /[id number]
[2019-08-22] MEDS: Acetaminophen 325 MG Tab PO PRN ×2 (14:27→20:51)
[2019-08-22] MEDS: Dextrose 5%-Lactated Ringers 1,000 ML IV SCH (18:40)
[2019-08-23] MEDS: Dextrose 5%-Lactated Ringers 1,000 ML IV SCH (01:24)
[2019-08-23 07:52] VITALS: BP 120/60; PULSE 67
--- NOTE | 2019-08-23 10:04 | DISCH ---
ADMISSION DIAGNOSES: 1. GI bleed/bloody stools. 2. Status post exploratory laparotomy, lysis of adhesions, right salpingo-oophorectomy, small bowel resection, secondary enterostomy to restore Nalini-en-Y small bowel anatomy and mobilization of the omentum into pelvis 08/18/2019. 3. Status post Nalini-en-Y gastric bypass surgery. 4. Unspecified surgical malabsorption. 5. B12 deficiency. 6. Vitamin B1 deficiency. 7. History of iron-deficiency anemia. 8. Depression. DISCHARGE DIAGNOSIS: Resolution of gastrointestinal bleed. HISTORY: Saima was admitted to the hospital with a 2-day history of large bloody foul- smelling stools. She had 3 the day of admission, was symptomatic with weakness and dizziness. She was admitted with a hemoglobin of 9.1, prior to her surgery it was 13.2. Upon admission, she was given 1 L of lactated Ringer's over 1 hour, and the next hemoglobin reported was 7.9. Upon admission, she received, in addition to the bolus of fluid, 2 doses of factor VII and 2 doses of tranexamic acid. With a hemoglobin of 7.9 she was given 2 units of packed red blood cells. Throughout 24 hours, 2 bowel movements, and they did not have any blood in them. Vital signs remained stable, active, felt better, and was able to be discharged to home on 08/23/2019. Hemoglobin after 2 units of packed red blood cells was 9.6, white count 4.1. PHYSICAL EXAMINATION: GENERAL: Saima Walters is a pleasant 44-year-old female. Height is 5 feet 7 inches. Weight is 173 pounds. VITAL SIGNS: At 0521; 97.5, 62, 16. Blood pressure 100/71. HEENT: Negative. NECK: Supple. HEART: Regular rate and rhythm. LUNGS: Clear. ABDOMEN: [place] intact. Incision looks good. Abdominal binder is on. EXTREMITIES: Without peripheral edema. DISPOSITION: Discharged to home. CONDITION: Stable and improving. FOLLOWUP APPOINTMENTS: Domonique Wray PA-C on 08/25/2019 for an already scheduled postop appointment. She is to keep her same time and then, on arrival, she will be getting a CBC. DISCHARGE MEDICATIONS: 1. To resume home medications including Augmentin b.i.d., which she got prescribed for sinus infection prior to admission. 2. Vitamin D3 of 10,000 international units. 3. Vitamin B12 1000 mcg sublingual twice daily. 4. Bentyl 20 mg every 6 hours p.r.n. gas and bloating. 5. Vitron-C 1 tablet oral daily. 6. Magnesium 400 mg oral daily. 7. Multivitamin 1 oral twice daily. 8. Phosphorus 1 tablet twice daily. 9. Omeprazole 40 mg twice daily. 10.Sucralfate 1 g oral before meals and bedtime. 11.Vitamin B complex 1 daily. 12.Dulcolax 10 mg oral daily p.r.n. DIET: Step 3 gastric bypass diet. Drink 8 to 10 glasses of water a day. ACTIVITY: No lifting over 10 pounds for 5 weeks. Other activity: Walk at least 8 times daily inside your home. Driving: Do not drive while on narcotic pain medication. May shower. DISCHARGE INSTRUCTIONS: Notify provider if any fever, increased pain, nausea, or vomiting or any further bloody stools. Wound incision care, keep site clean and dry. Wear abdominal binder for 5 more weeks and then as tolerated. SPECIAL INSTRUCTIONS: Continue to use incentive spirometer as directed and to walk frequently inside your home to avoid any blood clots, after receiving factor VII and tranexamic acid.
== END 2019-08-23 10:00 | disposition home or self-care (01) | DRG 378 ==
LOC: JP.MS 10:30
PROVIDERS: ADMIT Surgery; ATTEND Surgery
PROC: 30233N1 Transfusion of Nonautologous Red Blood Cells into Peripheral Vein, Percutaneous Approach (ICD-10-PCS; principal; 2019-08-22)
DX: K92.2 Gastrointestinal hemorrhage, unspecified (principal); K91.2 Postsurgical malabsorption, not elsewhere classified; E51.9 Thiamine deficiency, unspecified; F32.9 Major depressive disorder, single episode, unspecified; E53.8 Deficiency of other specified B group vitamins; F41.0 Panic disorder [episodic paroxysmal anxiety]; D50.9 Iron deficiency anemia, unspecified; E03.9 Hypothyroidism, unspecified; Z98.84 Bariatric surgery status
CPT/HCPCS: 36415; 36430; 80053; 82728; 83735; 84100; 85027; 86850; 86900; 86901; 86920; 86922; A9270-GY; C9113; J7050; J7120; J7121; J7189; P9016

== ENCOUNTER 2021-01-06 07:29 | Day surgery (SDC) | payer MEDICAID ==
[2021-01-06] MEDS ORDERED: Propofol 200 MG/20 ML SDV ONE (07:33)
[2021-01-06] MEDS ORDERED: fentaNYL 100 MCG/2 ML SDV ONE (07:33)
[2021-01-06] MEDS ORDERED: Midazolam 1 MG/ML 2 ML SDV ONE (07:33)
[2021-01-06] MEDS: Sodium Chloride 0.9% 1,000 ML IV SCH (07:55)
[2021-01-06 10:57] VITALS: BP 130/70; PULSE 59
--- NOTE | 2021-01-06 14:16 | OR ---
DATE OF PROCEDURE: 01/06/2021 SURGEON: Yassine Woodson MD PROCEDURES: 1. EGD. 2. Colonoscopy. FINDINGS: 1. Very small marginal ulcer, appears to be healing without evidence of active bleeding. 2. Normal colonoscopy. COMPLICATIONS: None. STRAP MAKER: None. ANESTHESIA: MAC. PREOPERATIVE DIAGNOSIS: Epigastric pain/screening colonoscopy. POSTOPERATIVE DIAGNOSIS: Epigastric pain/screening colonoscopy. RISKS: Risks, benefits, alternatives, and limitations including, but not limited to infection, bleeding, perforation, false positives, and false negatives were explained to the patient and she wished to proceed. PROCEDURE IN DETAIL: The patient was placed in left lateral decubitus position. The EGD scope was introduced and advanced atraumatically to the second part of the Nalini-en-Y limb. No evidence of narrowing or stricturing. The Nalini-en-Y limb had normal architecture. At the junction of the GE junction along the pouch, there is a very small marginal ulcer. There is not active bleeding, appeared to be healing. The GE junction is normal. Esophagus is normal. The pouch is appropriately sized. Digital rectal exam was performed next. Scope was introduced and advanced atraumatically to the ileocecal valve. A photo was taken of the appendiceal orifice. Scope was brought back to the ascending, transverse, descending colon, and retroflexed. No evidence of old or new blood. No masses. No polyps. Greater than 8 minutes was spent removing the scope. Prep was acceptable, approximately 90% of the luminal surface could be seen. The patient tolerated the procedure well. Of note, the patient is already on proton pump inhibitor and treatment for H pylori. Therefore, no further biopsies of the marginal ulcer was performed. Yassine Woodson MD /[id number]
== END 2021-01-06 10:49 | disposition home or self-care (01) ==
LOC: JP.SDS 07:29
PROVIDERS: ATTEND Surgery
DX: Z12.11 Encounter for screening for malignant neoplasm of colon (principal); K28.9 Gastrojejunal ulcer, unspecified as acute or chronic, without hemorrhage or perforation; E03.9 Hypothyroidism, unspecified; Z98.84 Bariatric surgery status; Z88.2 Allergy status to sulfonamides
CPT/HCPCS: J2250; J2704; J3010; J7030